=== PATIENT | male | born 1975 | race Caucasian/White ===

== ENCOUNTER 2020-06-20 11:13 | Inpatient (IN) ==
[2020-06-20] MEDS ORDERED: HEPARIN (PORCINE) 1000 UNIT/ML 10 ML (CATH LAB USE ONLY) ONE (11:17)
[2020-06-20] MEDS ORDERED: fentaNYL citrate 100 MCG/2 ML VIAL ONE ×2 (11:17→12:45)
[2020-06-20] MEDS ORDERED: NiCARDipine HCL INJ 2.5 MG/ML 10 ML AMP ONE ×2 (11:17→13:52)
[2020-06-20] MEDS ORDERED: MIDAZOLAM HCL 1 MG/ML 2ML VIAL ONE ×2 (11:18→12:42)
[2020-06-20] MEDS ORDERED: NITROGLYCERIN/D5W 100MCG/ML 20ML SYR ONE ×2 (11:19→13:52)
[2020-06-20] MEDS ORDERED: NITROGLYCERIN SL 0.4 MG/TAB TAB ONE ×2 (11:22→11:47)
[2020-06-20] MEDS ORDERED: LORazepam 1 MG/2 ML VIAL IV STA (11:26)
[2020-06-20] MEDS ORDERED: LORazepam 2 MG/4 ML VIAL ONE (11:26)
[2020-06-20] MEDS ORDERED: OPTIRAY 320 125ml IV ONE (11:32)
--- NOTE | 2020-06-20 11:33 | XRay Report ---
XR chest 1V portable HISTORY: 45 years-old Male Chest pain acute atypical chest pain COMPARISON: None TECHNIQUE: Supine AP view of the chest FINDINGS: Coronary artery stent. Cardiac silhouette is upper limits of normal in size. Hypoinflation. Mild inte rstitial opacities, right greater than left. No pneumothorax, pleural effusion or overt pulmonary [place] ma. No airspace consolidation typical for pneumonia. Bones appear grossly intact. IMPRESSION: 1. Hypoinflation with mild nonspecific mild right lung interstitial coarsening. 2. Coronary arterial stent. 3. No airspace consolidation typical for pneumonia. ACT 112: Negative or not required by law. The above report was generated using voice recognition software. It may contain grammatical, syntax o r spelling errors. Electronically signed by: Deepak Fagan M.D. 06/20/2020 11:31 AM
[2020-06-20 11:38] LABS: Basophils # (auto) 0.01 K/uL (0-0.2); Basophils % (auto) 0.1 %; Eosinophils # (auto) 0.21 K/uL (0-0.5); Eosinophils % (auto) 2.1 %; Hematocrit (blood only) 43.4 % (42-52); Hemoglobin 14.5 g/dL (14.0-18.0); Immature Granulocytes # (auto) 0.07 K/uL (0.00-0.02); Immature Granulocytes % (auto) 0.7 %; Lymphocytes # (auto) 1.48 K/uL (1.2-3.4); Lymphocytes % (auto) 14.5 %; Mean Corpuscular Hemoglobin 29.7 pg (25-34); Mean Corpuscular Hgb Conc 33.4 g/dL (32-36); Mean Corpuscular Volume 88.8 fL (80-100); Mean Platelet Volume 10.9 fL (7.4-10.4); Monocytes # (auto) 0.74 K/uL (0.11-0.59); Monocytes % (auto) 7.2 %; Neutrophils # (auto) 7.72 K/uL (1.4-6.5); Neutrophils % (auto) 75.4 %; Platelet Count 211 K/uL (130-400); RDW Coefficient of Variation 14.1 % (11.5-14.5); Red Blood Count 4.89 M/uL (4.7-6.1); White Blood Count 10.23 K/uL (4.8-10.8)
[2020-06-20 11:47] LABS: Partial Thromboplastin Ratio 0.8; Partial Thromboplastin Time 23.5 Seconds (21.0-31.0); Prothrombin Time 10.6 Seconds (9.0-12.0)
--- NOTE | 2020-06-20 11:48 | CT Scan Report ---
CT head/brain wo con CLINICAL HISTORY: Head trauma. Evaluate for intracranial hemorrhage COMPARISON STUDY: No previous studies for comparison. TECHNIQUE: Axial CT of the brain is performed from the vertex to the skull base. IV contrast was not administered for this examination. A dose lowering technique was utilized adhering to the principles of ALARA. CT DOSE: FINDINGS: No intra or extra-axial mass lesions are visualized. There is no CT evidence of acute cortical infarc tion. There is no evidence of midline shift. There is no acute hemorrhage. No calvarial fractures ar e visualized. There is no evidence of pathologic ventricular dilatation. There is bilateral maxillary sinus mucosal thickening. There is a left maxillary sinus air-fluid leve l. There is trace fluid within the sphenoid sinus. There are multiple opacified ethmoid air cells. IMPRESSION: 1. No acute intracranial findings 2. Paranasal sinus disease ACT 112: Negative or not required by law. Electronically signed by: Carlos Avila M.D. 06/20/2020 11:47 AM
--- NOTE | 2020-06-20 11:48 | CT Scan Report ---
CERVICAL SPINE CT CT DOSE: HISTORY: Fall. found down TECHNIQUE: Multiaxial CT images of the cervical spine were performed and reformatted in the sagittal and coronal plane without the use of contrast. A dose lowering technique was utilized adhering to th e principles of ALARA. COMPARISON: None. FINDINGS: No fractures. No subluxation. Prevertebral soft tissues and the C1-C2 interval are intact. No pneumothorax. Trace fluid level within the left maxillary sinus. IMPRESSION: No fractures within the cervical spine. ACT 112: Negative or not required by law. Electronically signed by: Corey Aguilar M.D. 06/20/2020 11:46 AM
[2020-06-20 11:54] LABS: Albumin Level 3.2 gm/dl (3.4-5.0); BUN Creatinine Ratio 9.6 (10-20); Calcium 8.6 mg/dl (8.5-10.1); Creatinine Clr Calc Pharmacy 121.9 ml/min; Est GFR (African American) 104.9; Est GFR (Non-African American) 90.5; Magnesium 2.1 mg/dl (1.8-2.4); Potassium 4.3 mmol/L (3.5-5.1)
--- NOTE | 2020-06-20 11:54 | CT Scan Report ---
CT ANGIOGRAPHY OF THE CHEST WITHOUT AND WITH IV CONTRAST CLINICAL HISTORY: Atypical chest pain. Possible aortic dissection COMPARISON STUDY: Chest x-ray dated 06/20/2020 TECHNIQUE: Unenhanced images were obtained through the thorax. Following the IV administration of 118 mL of Optiray-320, CT angiography of the thorax was performed from the thoracic inlet to the lung ba ses. Images are reviewed in the axial, sagittal, and coronal planes. MIP images were acquired. IV con trast was administered without complication. A dose lowering technique was utilized adhering to the principles of ALARA. CT DOSE: 4212.43 mGy.cm FINDINGS: Thyroid: Imaged portions of the thyroid gland are normal in appearance. Thoracic aorta: Noncontrast images reveal no evidence of acute thoracic aortic hematoma. Postcontrast images reveal no evidence of thoracic aortic aneurysm. There are no intimal flaps to indicate aortic dissection. Pulmonary vasculature: The pulmonary trunk is normal in caliber. There are no central filling defects identified to suggest pulmonary embolus. Note that this examination was not protocoled for the evalu ation of pulmonary emboli. HEART: There are extensive coronary artery calcifications. There is myocardial thinning of the left v entricular apex. Lungs and pleural spaces: There are no pleural effusions. There are dependent atelectatic changes. Th ere are no areas of bright focal consolidation to indicate pneumonia. Mediastinum: There is no evidence of pathologic mediastinal lymphadenopathy [place]: There is no evidence of pathologic hilar lymphadenopathy Axilla: There is no evidence of pathologic axillary lymphadenopathy Upper abdomen: The gallbladder is surgically absent. Skeletal structures: There is a defect within the anterior sternal cortex which appears chronic. Ther e is no overlying soft tissue edema. IMPRESSION: 1. No evidence of thoracic aortic aneurysm or dissection 2. No evidence of acute pulmonary embolism 3. Extensive coronary artery calcifications with thinning of the left ventricular myocardial apex 4. Small defect within the anterior sternal cortex, likely chronic 5. Increased dependent parenchymal markings likely atelectatic ACT 112: Negative or not required by law. Electronically signed by: Carlos Avila M.D. 06/20/2020 11:53 AM
[2020-06-20 12:09] LABS: Albumin Globulin Ratio 0.9 (0.9-2); Bilirubin,Total 0.5 mg/dl (0.2-1); Creatine Kinase MB 3.1 ng/ml (0.5-3.6); Globulin 3.6 gm/dl (2.5-4.0); Thyroid Stimulating Hormone 6.3 uIu/ml (0.300-4.500); Total Protein 6.8 gm/dl (6.4-8.2); Troponin I 0.096 ng/ml (0-0.045)
[2020-06-20 12:24] LABS: T4 Free Thyroxine 0.77 ng/dl (0.8-1.6)
[2020-06-20] MEDS ORDERED: NOREPINEPHRINE BITARTRATE 1 MG/ML 4 ML VIAL (CATH LAB USE ONLY) ONE (12:30)
--- NOTE | 2020-06-20 12:35 | Emergency Department Note ---
History of Present Illness General Chief Complaint: Cardiac Assessment Time Seen by Provider: 06/20/20 11:16 History of Present Illness Provider complaint: found unresponsive and stopped breathing Timing confirmed by: police Place: other ([facility]) Bystander CPR performed: Yes AED applied by bystander/gsa coordinator: Yes Shock advised: Yes Number of shocks delivered: 1 Initial findings in the field: unresponsive, no respirations and no pulse ROSC in the field: Yes Associated injuries: No Associated symptoms: chest pain Known history of: CAD and [place] Treatments prior to arrival: chest compressions and defibrillated shocks # (1) 45-year-old male inmate presents emergency department status post cardiac arrest. Per EMS, the patient was in a break room area and was found down and unresponsive. Patient was found to be pulseless and not breathing. Chest compressions were started by police officers at the jail and AED was applied. AED if device shocked and 1 defibrillated garza was given the patient had [place] and regained pulse and breathing and started talking. Patient reported diffi culty seeing and intermittent vision loss which he reports has since resolved. He is able to see without difficulties now. Home Medications Home Medications Medication Instructions Recorded Confirmed Type aspirin 325 mg tablet 325 mg PO DAILY #30 tab 04/17/19 04/17/19 Rx carvedilol 12.5 mg tablet 12.5 mg PO BID #60 tab 04/17/19 04/17/19 Rx clopidogrel 75 mg tablet 75 mg PO DAILY #30 tab 04/17/19 04/17/19 Rx isosorbide mononitrate 30 mg 30 mg PO DAILY #30 tab 04/17/19 04/17/19 Rx tablet,extended release 24 hr nitroglycerin 0.4 mg sublingual 0.4 mg SL Q5M PRN #20 tab 04/17/19 04/17/19 Rx tablet pravastatin 40 mg tablet 40 mg PO DAILY #30 tab 04/17/19 04/17/19 Rx sertraline 100 mg tablet 200 mg PO DAILY #30 tab 04/17/19 04/17/19 Rx Allergies Allergy/AdvReac Type Severity Reaction Status Date / Time trazodone Allergy Severe LOW BP Verified 04/27/19 13:08 Past Med/Surg History Medical History CAD (coronary artery disease) Chronic sinusitis Dyslipidemia Hypertension Surgical History History of coronary artery stent placement Hx of tonsillectomy Family History Father Coronary heart disease, Onset Age: 30 Mother Hypertension Social History Smoking Status: Former smoker Age Started Using Tobacco: 17; Age Quit Using Tobacco: 43; packs per day: 1; Hx Alcohol Use: Yes (None since 1999) Communication Ability: Effective Beliefs That Will Affect Care: None marital status: Single Current Living Situation Comment: [facility] [employer] current occupation: NA Feels Safe at Home: Yes Review of Systems A total of 10 systems reviewed and were otherwise negative Physical Exam Vital Signs: Vital Signs - 24 hr 06/20/20 10:58 06/20/20 11:16 Temperature 37.0 C Temperature Source Oral Pulse Rate 79 Pulse Rate [Right Radial] 79 Respiratory Rate 26 H 24 Respiratory Effort / Characteristics Spontaneous Respiratory Depth Normal Respiratory Patter n Tachypnea Blood Pressure 125/78 Blood Pressure [Le ft Arm] 118/76 Blood Pressure [Ri ght Arm] 125/78 Blood Pressure Sofia n 93 Blood Pressure Sofia n [Left Arm] 90 Blood Pressure Sofia n [Right Arm] 93 Blood Pressure Pos ition Lying Blood Pressure Pos ition [Left Arm] Lying Blood Pressure Pos ition [Right Arm] Lying Pulse Oximetry 97 Oxygen Delivery Me thod Nasal Cannula Oxygen Flow Rate 4 Sepsis Recent Feve r Within 48 Hours No Sepsis New/Unexpla ined Change in Men jena Status No Sepsis Action Take n by Nursing No Action Required Physical Exam: Physical Exam GENERAL: He is oriented to person, place, and time. He appears well-developed and well-nourished. He does not appear distressed. HENT: Exam performed. - Head: Normocephalic and atraumatic. - Right Ear: External ear normal. No mastoid tenderness. - Left Ear: External ear normal. No mastoid tenderness. - Mouth/Throat: The oropharynx is clear and moist. No trismus in the jaw. No dental abscesses or uvula swelling. No oropharyngeal exudate or tonsillar abscesses. EYES: Conjunctivae and EOM are normal. Pupils are equal, round, and reactive to light. Right eye exhibits no discharge. Left eye exhibits no discharge. No scleral icterus. NECK: Normal range of motion. Neck supple. No JVD present. No spinous process tenderness present. No carotid bruit present. No rigidity. No tracheal deviation and normal range of motion present. No Brudzinski's sign and no Kernig's sign noted. CV: Normal rate, regular rhythm, normal heart sounds and intact distal pulses. There is no peripheral edema. Palpable radial pulses bue. PULM/CHEST: Effort normal and breath sounds normal. No respiratory distress. No stridor. He has no wheezes. He has no rales. - Chest Wall: He exhibits no tenderness. ABD: The abdomen is soft. Bowel sounds are normal. He has no distension. No mass is present. There is no tenderness. There is no rebound, no guarding, no Karie y's sign and no tenderness at McBurney's point. Rovsig negative. MUSC/SKEL: Normal range of motion. There is no peripheral edema, tenderness or deformity. LYMPH: No cervical adenopathy. NEURO: He is alert and oriented to person, place, and time. He has normal strength. No cranial nerve deficit or sensory deficit. Coordination and gait normal. GCS eye subscore is 4. GCS verbal subscore is 5. GCS motor subscore is 6. Cerebellar tests wnl. SKIN: Skin is warm and dry. He is not diaphoretic. PSYCH: He has a normal mood and affect. Behavior is normal. Judgment and thought content normal. Course Course 1046: Call received from EMS. Patient arriving with 45-year-old male who was in cardiac arrest. 1 shock delivered by AED and CPR was done by bystanders. No epi. Patient has a history of heart disease hyperlipidemia and peripheral artery disease. Twelve-lead EKG was faxed over to me. I reviewed the EKG and there is no ST elevation or ST depression. Given the patient has raw skin and had 1 shock delivered by a ED, heart alert was called for patient go to Regional Office Coordinator. 1058: The patient was evaluated in room B1. A complete history and physical exam was performed. Administered Medications Discontinued Medications Lorazepam (Ativan) 1 mg in 2 mls @ 2 mls/min IV NOW STA Stop: 06/20/20 11:27 Last Admin: 06/20/20 11:32 Dose: 2 mls/min Documented by: [id number] Ioversol (Optiray 320 125ml) 118 ml IV ONCE ONE Stop: 06/20/20 11:33 Last Admin: 06/20/20 11:32 Dose: 118 ml Documented by: [id number] Lorazepam (Lorazepam 2 Mg/4 Ml Vial) Confirm Administered Dose 2 mg .ROUTE .STK- MED ONE Stop: 06/20/20 11:27 Last Admin: 06/20/20 11:33 Dose: Not Given Documented by: [id number] Nitroglycerin (Nitroglycerin Sl 0.4 Mg/Tab Tab) Confirm Administered Dose 0.4 mg .ROUTE .STK-MED ONE Stop: 06/20/20 11:23 Last Admin: 06/20/20 11:24 Dose: 0.4 mg Documented by: [id number] Medical Decision Making Laboratory Data Result diagrams: 06/20/20 11:23 06/20/20 11:23 Lab Results 06/20/20 06/20/20 06/20/20 Range/Units 11:23 11:23 11:23 WBC 10.23 (4.8-10.8) K/uL RBC 4.89 (4.7-6.1) M/uL Hgb 14.5 (14.0-18.0) g/dL Hct 43.4 (42-52) % MCV 88.8 (80-100) fL MCH 29.7 (25-34) pg MCHC 33.4 (32-36) g/dL RDW Std Deviation 46.0 (36.4-46.3) fL RDW Coeff of Ariane 14.1 (11.5-14.5) % Plt Count 211 (130-400) K/uL MPV 10.9 H (7.4-10.4) fL Immature Gran % (Auto) 0.7 % Neut % (Auto) 75.4 % Lymph % (Auto) 14.5 % [place] % (Auto) 7.2 % Eos % (Auto) 2.1 % Baso % (Auto) 0.1 % Neut # (Auto) 7.72 H (1.4-6.5) K/uL Lymph # (Auto) 1.48 (1.2-3.4) K/uL [place] # (Auto) 0.74 H (0.11-0.59) K/uL Eos # (Auto) 0.21 (0-0.5) K/uL Baso # (Auto) 0.01 (0-0.2) K/uL Immature Gran # (Auto) 0.07 H (0.00-0.02) K/uL PT 10.6 (9.0-12.0) Seconds INR 1.0 (0.9-1.1) APTT 23.5 (21.0-31.0) Seconds PTT Ratio 0.8 Sodium 139 (136-145) mmol/L Potassium 4.3 (3.5-5.1) mmol/L Chloride 108 H (98-107) mmol/L Carbon Dioxide 21 (21-32) mmol/L Anion Gap 10.0 (3-11) BUN 10 (7-18) mg/dl Creatinine 1.00 (0.6-1.4) mg/dl Est Cr Clr Drug Dosing 121.9 ml/min Est GFR ( Amer) 104.9 Est GFR (Non-Af Amer) 90.5 BUN/Creatinine Ratio 9.6 L (10-20) Glucose 143 H (70-99) mg/dl Calcium 8.6 (8.5-10.1) mg/dl Magnesium 2.1 (1.8-2.4) mg/dl Total Bilirubin 0.5 (0.2-1) mg/dl AST 177 H (15-37) U/L ALT 236 H (12-78) U/L Alkaline Phosphatase 63 (45-117) U/L Total Creatine Kinase 197 (39-308) U/L CK-MB (CK-2) 3.1 (0.5-3.6) ng/ml CK/CKMB % Calc 1.6 (0-3.0) Troponin I 0.096 H* (0-0.045) ng/ml Total Protein 6.8 (6.4-8.2) gm/dl Albumin 3.2 L (3.4-5.0) gm/dl Globulin 3.6 (2.5-4.0) gm/dl Albumin/Globulin Ratio 0.9 (0.9-2) Lipase 103 (73-393) U/L TSH 6.300 H (0.300-4.500) uIu/ml Free T4 0.77 L (0.8-1.6) ng/dl Imaging Data Radiologist's Impression: CT ANGIOGRAPHY OF THE CHEST WITHOUT AND WITH IV CONTRAST CLINICAL HISTORY: Atypical chest pain. Possible aortic dissection COMPARISON STUDY: Chest x-ray dated 06/20/2020 TECHNIQUE: Unenhanced images were obtained through the thorax. Following the IV administration of 118 mL of Optiray-320, CT angiography of the thorax was performed from the thoracic inlet to the lung bases. Images are reviewed in the axial, sagittal, and coronal planes. MIP images were acquired. IV contrast was administered without complication. A dose lowering technique was utilized adhering to the principles of ALARA. CT DOSE: 4212.43 mGy.cm FINDINGS: Thyroid: Imaged portions of the thyroid gland are normal in appearance. Thoracic aorta: Noncontrast images reveal no evidence of acute thoracic aortic hematoma. Postcontrast images reveal no evidence of thoracic aortic aneurysm. There are no intimal flaps to indicate aortic dissection. Pulmonary vasculature: The pulmonary trunk is normal in caliber. There are no central filling defects identified to suggest pulmonary embolus. Note that this examination was not protocoled for the evaluation of pulmonary emboli. HEART: There are extensive coronary artery calcifications. There is myocardial thinning of the left ventricular apex. Lungs and pleural spaces: There are no pleural effusions. There are dependent atelectatic changes. There are no areas of bright focal consolidation to indicate pneumonia. Mediastinum: There is no evidence of pathologic mediastinal lymphadenopathy [place]: There is no evidence of pathologic hilar lymphadenopathy Axilla: There is no evidence of pathologic axillary lymphadenopathy Upper abdomen: The gallbladder is surgically absent. Skeletal structures: There is a defect within the anterior sternal cortex which appears chronic. There is no overlying soft tissue edema. IMPRESSION: 1. No evidence of thoracic aortic aneurysm or dissection 2. No evidence of acute pulmonary embolism 3. Extensive coronary artery calcifications with thinning of the left ventricular myocardial apex 4. Small defect within the anterior sternal cortex, likely chronic 5. Increased dependent parenchymal markings likely atelectatic ACT 112: Negative or not required by law. Electronically signed by: Carlos Avila M.D. 06/20/2020 11:53 AM Dictated: 06/20/20 1147 Transcribed: 06/20/[address] DOSE: HISTORY: Fall. found down TECHNIQUE: Multiaxial CT images of the cervical spine were performed and reformatted in the sagittal and coronal plane without the use of contrast. A dose lowering technique was utilized adhering to the principles of ALARA. COMPARISON: None. FINDINGS: No fractures. No subluxation. Prevertebral soft tissues and the C1-C2 interval are intact. No pneumothorax. Trace fluid level within the left maxillary sinus. IMPRESSION: No fractures within the cervical spine. ACT 112: Negative or not required by law. Electronically signed by: Corey Aguilar M.D. 06/20/2020 11:46 AM Dictated: 06/20/20 1143 Transcribed: 06/20/[address] head/brain wo con CLINICAL HISTORY: Head trauma. Evaluate for intracranial hemorrhage COMPARISON STUDY: No previous studies for comparison. TECHNIQUE: Axial CT of the brain is performed from the vertex to the skull base. IV contrast was not administered for this examination. A dose lowering technique was utilized adhering to the principles of ALARA. CT DOSE: FINDINGS: No intra or extra-axial mass lesions are visualized. There is no CT evidence of acute cortical infarction. There is no evidence of midline shift. There is no acute hemorrhage. No calvarial fractures are visualized. There is no evidence of pathologic ventricular dilatation. There is bilateral maxillary sinus mucosal thickening. There is a left maxillary sinus air-fluid level. There is trace fluid within the sphenoid sinus. There are multiple opacified ethmoid air cells. IMPRESSION: 1. No acute intracranial findings 2. Paranasal sinus disease ACT 112: Negative or not required by law. Electronically signed by: Carlos Avila M.D. 06/20/2020 11:47 AM Dictated: 06/20/20 1143 Transcribed: 06/20/20 114 ECG Data Indication: chest pain Rate (beats per minute): 78 Rhythm: normal sinus Findings: + ST depression (Mild ST depression V5 V6); no ST elevation Additional Comments: SC QRS and QTc intervals are within normal limits MDM Narrative The patient was evaluated in room B1. A complete history and physical exam was performed. Patient was placed on cardiac catheterization technologist and large-bore IV access was obtained. Cardiac pads were placed on the patient. EKG was performed which showed no STEMI, extremely mild ST depressions in leads V5 and V6. Dr. Cornejo at bedside. He agrees there is no STEMI on EKG. Patient was found down at the residential. Dr. Cornejo and I discussed and we decided that the patient would be taken for CT scan to rule out any intracerebral hemorrhage before the patient going to Regional Office Coordinator. Blood pressure was equal in both arms. Patient was still reporting chest pain. Patient was given 1 sublingual nitro in the emergency department and Ativan 1 mg IVP. I accompanied the patient to CAT scan. I reviewed the CT scans myself did not see any sort of intracerebral hemorrhage or C-spine fracture. Patient continued to report chest pain while in CAT scan and since he was at the CAT scan we decided to do CTA of his chest to rule out dissection. CTA of the chest was quickly viewed by me and revealed no dissection. Patient was taken back to the resuscitation bay and he was given aspirin 324 mg p.o. Patient was still reporting chest pains while sublingual nitroglycerin was given. Repeat EKG at 1119 showed sinus rhythm with rate of 78. SC QRS and QTc intervals are within normal limits. No ST elevation. Mild ST depression in leads V5 and V6. No significant change from previous EKG. I discussed with Dr. Cornejo that I did not see any evidence of ICH or dissection on the CAT scan, official reads are pending. He stated he would take the patient to Regional Office Coordinator given his ROSC after cardiac arrest resolved status post 1 defibrillation by AED. Impression & Plan Cardiac arrest Critical Care Time Critical Care Time: Yes Total Critical Care Time: 38 I have personally spent greater than 38 minutes of critical care time in the direct management of this patient. This includes bedside care, interpretation of diagnostic studies, and testing, discussion with consultants, patient, and family members, and other required patient management activities. This 38 minutes is in excess of all separately billable procedures. Discharge Plan Visit Data Chief Complaint: Cardiac Assessment ED Provider: Adrián De León Discharge Problem: Cardiac arrest Patient Disposition: Still a Patient Discharge Instructions Interventions: ED Discharge Assessment Last Done: 06/20/20 11:56
[2020-06-20] MEDS ORDERED: ONDANSETRON INJ 2 MG/ML 2 ML VIAL IV PRN (13:39)
[2020-06-20] MEDS ORDERED: NITROGLYCERIN SL 0.4 MG/TAB TAB SL PRN (13:44)
[2020-06-20] MEDS ORDERED: ICU PROTOCOL FOR HYPERGLYCEMIA PRN (13:49)
[2020-06-20] MEDS ORDERED: TICAGRELOR 90 MG TAB PO ONE ×2 (13:49→13:50)
--- NOTE | 2020-06-20 13:55 | Critical Care Consultation ---
Date of Consultation June 20, 2020 Assessment & Plan (1) Cardiac arrest: 45-year-old male with a past medical history of ischemic cardiomyopathy, coronary artery disease, obesity and hypertension presenting to the hospital status post cardiac arrest. Patient underwent PCI to the ostial ramus with a single drug-eluting stent and PCI of ostial to proximal LAD with single drug-eluting stent. Patient loaded with Brilinta. He is chronically on aspirin. Continue dual antiplatelet therapy indefinitely. Trend troponins until peak. Echo is being obtained. Continue beta-kwasi and JOVITA. Cardiology would consider AICD placement later this hospitalization. Continue statin. Lidocaine patch for chest pain as needed. Altered mental status is resolved. Remain in the ICU today with likely downgrade tomorrow. (2) Percutaneous transluminal coronary angioplasty status: (3) Altered mental status: (4) Coronary artery disease: History of Present Illness Reason for Consultation: Post cardiac arrest Requesting Physician: Dr. Derick Cornejo Attending Physician: Derick Cornejo MD History of Present Illness Today when she did not demonstrate any evidence of thoracic aortic dissection or aneurysm. No evidence of pulmonary embolism. Extensive coronary artery calcifications with thinning of the left ventricular myocardial apex noted. Small defect within the anterior sternal cortex likely chronic. Increased dependent parenchymal markings likely atelectatic.This is a 45-year-old male with a past medical history of coronary artery disease and ischemic cardiomyopathy who was previously seen by Dr. Disla in April 2019 presenting to the ER status post cardiac arrest. Patient was found down in the break room and unresponsive. Chest compressions were started by security guards and an AED was placed. Patient received 1 shock by the ED device. Patient regained return of spontaneous circulation. Patient was apparently breathing and talking. He was evaluated by cardiology in the emergency department and taken back to the Cath L ab. Patient is complaining of chest pain that is reproducible with palpation. He does not remember the events surrounding his cardiac arrest. Denies any fevers or chills. He notes his last heart attack was many years ago, but he had similar pain. He notes that he has had a cough for the last 2 to 3 months. Vital signs are stable currently. Patient underwent a CT of his chest demonstrated no evidence of PE or dissection. Extensive coronary artery calcifications with thinning of the left ventricular myocardial apex. Small defect within the anterior sternal cortex likely chronic. Increased atelectasis in the bases. CT C-spine was negative for fractures. CT head with paranasal sinus disease. No acute abnormalities. Patient underwent a cardiac cath which demonstrated 100% proximal chronic total occlusion of the RCA. 99% ramus ostial stenosis. 70 to 80% proximal in-stent restenosis of the LAD with mild to moderate mid in-stent restenosis. 100% distal LAD chronic total occlusion. In summary, severe multivessel coronary artery disease. 70 to 80% proximal LAD in- stent restenosis. Successful PCI of ostial ramus with single drug-eluting stent. Successful PCI of ostial to proximal LAD with single drug-eluting stent. Recommendation for possible ICD implantation later on during hospitalization. Allergies Allergy/AdvReac Type Severity Reaction Status Date / Time trazodone Allergy Severe LOW BP Verified 04/27/19 13:08 Home Medications Home Medications Medication Instructions Recorded Confirmed Type aspirin 325 mg tablet 325 mg PO DAILY #30 tab 04/17/19 04/17/19 Rx carvedilol 12.5 mg tablet 12.5 mg PO BID #60 tab 04/17/19 04/17/19 Rx clopidogrel 75 mg tablet 75 mg PO DAILY #30 tab 04/17/19 04/17/19 Rx isosorbide mononitrate 30 mg 30 mg PO DAILY #30 tab 04/17/19 04/17/19 Rx tablet,extended release 24 hr nitroglycerin 0.4 mg sublingual 0.4 mg SL Q5M PRN #20 tab 04/17/19 04/17/19 Rx tablet pravastatin 40 mg tablet 40 mg PO DAILY #30 tab 04/17/19 04/17/19 Rx sertraline 100 mg tablet 200 mg PO DAILY #30 tab 04/17/19 04/17/19 Rx Patient History Medical History Altered mental status CAD (coronary artery disease) Chronic sinusitis Coronary artery disease Dyslipidemia Hypertension Surgical History History of coronary artery stent placement Hx of tonsillectomy Percutaneous transluminal coronary angioplasty status Family History Father Coronary heart disease, Onset Age: 30 Mother Hypertension Social History Smoking Status: Former smoker Age Started Using Tobacco: 17; Age Quit Using Tobacco: 43; packs per day: 1; Hx Alcohol Use: Yes (None since 1999) Communication Ability: Effective Beliefs That Will Affect Care: None marital status: Unknown Current Living Situation Comment: [facility] current occupation: NA Feels Safe at Home: Yes Review of Systems Review of Systems: All systems reviewed & are unremarkable except as noted in HPI & below Physical Exam Constitutional: WD/WN, vitals as above Eyes: PERRL, conjunctivae normal, anicteric sclerae ENMT: external ear and nose normal, oropharynx normal Respiratory: normal respiratory effort, lungs clear to auscultation Cardiovascular: RRR, no murmur, no edema Gastrointestinal (Abdomen): normal bowel sounds, soft, nontender, no hepatosplenomegaly Musculoskeletal: no cyanosis or clubbing, extremities motor strength 5/5 Skin: no rashes, warm and dry Neurologic: PERRL, EOMI, accommodation nl, no face palsy, no dysarthria Psychiatric: A+Ox3, euthymic affect Results & Data Results & Data ([facility]) Vital Signs (Past 12 Hours) Vital Signs Temp Pulse Pulse Resp BP BP BP 06/20/20 11:16 79 24 118/76 125/78 06/20/20 10:58 98.6 F 79 26 H 125/78 Pulse Ox 06/20/20 11:16 06/20/20 10:58 97 Reviewed vital signs, labs and imaging Coding Level of Care Code 68457 Inpt Consult Level 5 Diagnoses Cardiac arrest I46.9 Percutaneous transluminal coronary angioplasty status Z98.61 Altered mental status R41.82 Coronary artery disease I25.10
--- NOTE | 2020-06-20 13:57 | Pre Anesthesia Assessment ---
Date of Service June 20, 2020 Pre Sedation Assessment Vital Signs Temp Pulse Pulse Resp BP BP BP 06/20/20 11:16 79 24 118/76 125/78 06/20/20 10:58 98.6 F 79 26 H 125/78 Pulse Ox 06/20/20 11:16 06/20/20 10:58 97 Cardiovascular + regular rate no murmur Respiratory + labored breathing Pre-Sedation Airway Assessment Smoking Status: Former smoker Hx Sleep Apnea: No Hx Difficult Intubation: No Short, Thick Neck: No Thyromental Distance: < 3.5 Finger Breadths Oral Cavity: + Dental Abnormalities Mallampati Class: III ASA: ASA4 Procedure Planning Contraindications for Sedation: none Current Medications Reviewed: Yes Notes The planned sedation has been discussed with the patient. Informed Consent was obtained. I have identified the patient, determined the appropriateness of sedation and have assessed the patient immediately prior to the procedure. All medicine(s) and interventions are by my order.
--- NOTE | 2020-06-20 13:58 | Post Anesthesia Assessment ---
Date of Service June 20, 2020 Post Sedation Assessment Vital Signs Temp Pulse Pulse Resp BP BP BP 06/20/20 11:16 79 24 118/76 125/78 06/20/20 10:58 98.6 F 79 26 H 125/78 Pulse Ox 06/20/20 11:16 06/20/20 10:58 97 Recovery Score Activity: Moves 4 extremities Respiration: Deep Breath/Cough Circulation: +/-20% PreAnes Value Consciousness: Arouseable (by name) Oxygen Saturation: O2 needed for >90% Discharge Sedation Level of Care: Fast Track Phase II Post Sedation Plan On clinical assessment, the patient appears to have tolerated the sedation without complications. Patient is recovering as anticipated. Patient will continue to be monitored by nursing and may be discharged when sedation discharge criteria are met per below protocol. Upon Completions of procedure up to 15 minutes continue every 5 minute vital signs and the P.A.R. score; then discharge to a Phase I or Fast Track to Phase II per the following guidelines: * Discharge Patient to appropriate Phase II area if PAR is 8 or greater or return to pre- procedure baseline. The post - procedure orders will be as directed. * If PAR score is less than 8 or not return to pre-procedure baseline then patient will follow Phase I monitoring till PAR is reached for Phase II. The Phase I may be done in procedure room or may call to secure a Phase I area. * If naloxone or flumazenil are used for reversal, hold in Phase I for continued monitoring from when last reversal dose was given for a minimum of 60 minutes or longer pending the nurse and/or physician discretion of patient condition before discharge to Phase II. Please call the Sedation Physician to re-evaluate and complete post-note for discharge to Phase II area. Do NOT discharge from procedure sedation or Phase 1 until post- sedation eval uation note is complete by procedure /sedation MD Sedation Discharge Instructions to be given to the patient at discharge to home.
--- NOTE | 2020-06-20 14:30 | Cardiac Catheterization ---
ACC Data: Allopathic Doctor Cardiac Status Clinical evaluation leading to the procedure CAD Presenation: Non STEMI Anginal Classification: CCS IV Heart Failure: No Cardiogenic Shock within 24 Hours: No Cardiac Arrest within 24 Hours: Yes Imaging Studies Past 6 Months: No Stress Studies Past 6 Months: No Diagnostic Physicians Name: Derick Cornejo MD Status: Emergency Closure Device Percutaneous Entry Location: Radial Closure Device: Radial Band Recommendations: PCI without planned CABG PCI Indication: PCI for high risk Non-BRANDON Lesion Segment Name: ostal ramus Culprit Artery: Yes Stenosis Prior to Rx (%): 99 Chronic Total Occlusion: No IVUS: Yes FFR: No Pre-Procedure SHERI Flow: 3 Previously Treated Lesion: No Lesion Complexity: High/C Lesion Length (mm): 12 Thrombus Present: Yes Bifurcation Lesion: Yes Guidewire Across Lesion: Stenosis Post-Procedure (%): 0 Post-Procedure SHERI Flow: 3 Devices(s) Deployed: Yes Yes Lesion #2 Segment Name: ostial LAD Culprit Artery: No Stenosis Prior to Rx (%): 80 Chronic Total Occlusion: No IVUS: Yes FFR: No Pre-Procedure SHERI Flow: 3 Previously Treated Lesion: Yes Timeframe: greater than 2 years Treated with Stent: Yes In-Stent Restenosis: Yes In-Stent Thrombosis: No Stent Type: ALEX Lesion Complexity: High/C Lesion Length (mm): 15 Thrombus Present: No Bifurcation Lesion: Yes Guidewire Across Lesion: Yes Stenosis Post-Procedure (%): 0 Post-Procedure SHERI Flow: 3 Devices(s) Deployed: Yes Intraprocedure Events Significant Disection: No Perforation: No Cardiac Cath Procedure Full Procedure Date June 20, 2020 Pre-Procedure Diagnosis Pre-Procedure Diagnosis: Non STEMI and Cardiothoracic Symptom (Cardiac arrest) AUC Score AUC Score: 8 Post-Procedure Diagnosis Post-Procedure Diagnosis: Severe CAD, Successful PCI and Normal Intracardiac Pressures Procedure(s) Performed Procedure(s) Performed: Coronary Angiography, Left Heart Cath, Drug Eluting Stent and IVUS Shelf Stocker Derick Cornejo MD Client Services Assistant(s) Yvon Estimated Blood Loss Estimated Blood Loss: 20 Medication(s) Medication(s): Fentanyl, Heparin, Lidocaine 1%, Nicardipine, Nitroglycerin and Versed Medication(s): Ticagrelor Summary of Findings Indication: Cardiac arrest Access: 6 Fr slender right radial artery Catheters: [place], EBU 3.5 guide Findings: LM -large caliber, 20 to 30% distal at bifurcation LAD -medium caliber, stented from ostium to distal segment. 70 to 80% proximal in-stent restenosis, mild to moderate mid in-stent restenosis. 100% distal LAD chronic total occlusion just after distal aspect of prior stents. Apical vessels fill partially via left to left collaterals. Medium caliber jailed second diagonal with 50% ostial stenosis. Ramus99% hazy, ostial stenosis prior to patent proximal stent. Circumflex -40% ostial, 30% mid segment, medium caliber OM 2 100% chronically occluded. Fills partially retrograde via left to left collaterals. Distal vessel extends and gives collaterals to RCA RCA -100% proximal chronic total occlusion. Right PLB's fill via collaterals from the left LVEDP -12 -- PCI -- Antithrombotic therapy: Heparin, ticagrelor Procedure: Patient with ongoing chest pain and thought to have poor targets for CABG. Decision to proceed with PCI. Left main cannulated with EBU 3.5 guide Lead [employer] Developer 50 wire passed across lesion into distal ramus Pro-water wire placed into circumflex Ostial ramus lesion predilated with 2.0 compliant balloon Dilated lesion stented with 2.25 x 12 mm Xience Tawnya IC vasodilators administered for spasm Noted to have some residual ostial ramus stenosis as well as severe ostial LAD disease BMW wire placed into distal LAD IVUS used to assess extent of disease in LAD, left main. Unable to pass [place] IVUS catheter into mid LAD due to stenosis. Noted to have severe in-stent restenosis at the ostium. Mild circumferential disease in left main. LAD in-stent restenosis dilated with 2.5 balloon Ostial LAD stented with 3.0 x 15 mm Xience [place] LAD stent postdilated with 3.5 NC balloon Ostial ramus stent postdilated with 2.5 NC balloon Post procedure SHERI 3 flow, mild residual ostial LAD stent underexpansion. Mild residual disease at ostium of ramus. No apparent cardiac complications. Continue to have chest pain but reproducible to palpation and with movement and thought chest wall in nature following CPR. Arterial Closure: TR band Summary: 1. Severe multi vessel coronary artery disease -70 to 80% proximal LAD in-stent restenosis. 100% distal LAD chronic total occlusion. Apical vessels fill partially via left to left collaterals 99% possibly acute ostial ramus stenosis just prior to patent stent Medium caliber OM 2 100% chronic total occlusion fills via collaterals 100% proximal RCA chronic total occlusion. PLB's fill via left to left collaterals 2. Normal intracardiac filling pressure 3. Successful PCI of ostial ramus with single drug-eluting stent (2.25 x 12 mm Xience; postdilated with 2.5 NC). 4. Successful PCI of ostial to proximal LAD with single drug-eluting stent (3.0 x 15 mm Xence; postdilated with 3.5 NC). Recommendations: To ICU for continued monitoring Loaded with ticagrelor 180 mg in Allopathic Doctor Continue dual-antiplatelet therapy indefinitely Trend troponins until peak Echocardiogram today Titrate beta-kwasi, ARB as able. Continue statin. We will consider ICD implantation later in hospitalization. Hemodynamics Rest Ao:: 96/69/75 Final Ao: 107/75/86 LV: 80/12 Recommendations Recommendations: PCI without planned CABG Specimens Specimens: None Radiation Exposure (mGy) 5503 Contrast (mls) 140 Fluids (cc crystalloids) Fluids (cc crystalloids): 145 Drains Drains: None Anesthesia Moderate Procedural Complication(s) None Disposition ICU I attest to the content of the Intraoperative Record and any orders documented therein. Any exceptions are noted below. [facility] Card Cath Procedure Codes Cardiac Catheterization Procedure 1: Cardiovascular Cath Procedures: 40634 Coronaries and LHC (+/-LV) Therapeutic Services & Ancillary Proc Procedure 1: Cardiovascular Tx and Anc Procedures: 16070 IV Ultrasound (Coronary or Graft) Procedure 2: Cardiovascular Tx and Anc Procedures: 59812 IV Ultrasound Ea addl vessel Moderate Sedation Procedure 1: Sedation/Anesthesia: 12093 Mod Sedation by the same physician;Init15 Min Child Age 5 & Up Procedure 2: Sedation/Anesthesia: 85843 Mod Sedation by the same physician; Ea [id number] Minutes Stenting Procedure 1: Cardiovascular Stent Procedures: 68684 Perc transcatheter placement of intracoronary stent(s), with ang Procedure 2: Cardiovascular Stent Procedures: 42506 Ea addl branch of a major coronary artery PG Care Time/CCT Total # of Minutes Spent Total Time Spent with Patient: Total time spent is greater than 50% in c oordination of care (as documented) at patient's floor/unit and/or counseling patient:
[2020-06-20] MEDS ORDERED: SODIUM CHLORIDE 0.9% 1000ML 1,000 ML IV SCH (15:00)
--- NOTE | 2020-06-20 15:17 | History & Physical Report ---
Date of Service June 20, 2020 Assessment & Plan (1) Cardiac arrest: With cardiac arrest at the present with CPR started and 1 shock administered by AED With chest pain ongoing after resuscitation more so likely secondary to musculoskeletal pain from CPR, however cardiac arrest thought to be due to the 99% stenosis found on urgent cardiac catheterization in the ramus prior to the patent proximal stent. Cardiac arrest alternatively could be from ventricular arrhythmia secondary to myocardial infarction scar. With some postarrest confusion possibly secondary to anoxia-now resolved CT angiogram of the chest negative for PE or dissection. CT of the head negative for acute disease. Now status post urgent PCI with stents to the ostial ramus and proximal LAD Echocardiogram post catheterization with preserved LV function Vital signs are stable at the time of admission after cardiac catheterization -Admit to ICU for close monitoring -Loaded with Brilinta in the [place] will continue dual antiplatelet therapy with aspirin and Brilinta-holding home Plavix -Cardiology started him on metoprolol tartrate 25 mg p.o. 3 times daily for now (is on carvedilol as an outpatient), atorvastatin 80 mg once daily (home med rec listed as being on pravastatin 40 mg daily as an outpatient, although patient reports he was switched to Lipitor last year), and starting losartan 25 mg once daily -Trend troponin until peaks May need an ICD prior to discharge-to be determined by cardiology Check hemoglobin A1c and lipid panel in the morning -Not a candidate for cooling at this time as per my discussion with cardiology Follow CBC, CMP, magnesium, phosphorus Appreciate cardiology and log skidder management -Checking COVID-19 test given that he has a cough and cardiac arrest-negative (2) Coronary artery disease: As noted above, known to be severe, not a candidate for CABG at this time given multiple stents in the LAD-not good options for sewing a graft in place as per cardiology -Continue management with medications as above Holding home isosorbide (3) Altered mental status: Secondary to post arrest, possibly anoxic brain injury-now much improved Follow along and consider imaging of the brain if worsens (4) Hypertension: Blood pressures are controlled -Continue metoprolol, added losartan as above Holding home isosorbide (5) Dyslipidemia: Switch pravastatin to atorvastatin although patient reports he was switched to atorvastatin last year-home med rec likely not updated Check lipid panel in the morning (6) Chronic sinusitis: Noted previously and on CT of the head No acute issues COVID-19 is negative (7) DVT prophylaxis: SCDs, Brilinta, aspirin Disposition-admit to ICU Eventually back to [facility] Admission and Anticipated Discharge Date Admission Date: June 20, 2020 History of Present Illness Chief Complaint: Unresponsive, cardiac arrest Primary Care Provider: ANGELICA Rose This patient is a 45-year-old male with an extensive cardiac history of CAD with MIs beginning at age 34 and a history of stents to the LAD and circumflex with a known occluded RCA and apical LAD. He presented after being found unresponsive and apneic and pulseless at the [facility] break room. He was adm inistered CPR and the AED advised 1 shock after which ROSC was achieved. When he came to the ER, he was awake and alert but agitated and screaming saying that he had severe chest pain. His initial troponin was 0.09. His initial ECG showed normal sinus rhythm with mild ST depression in the lateral leads with T wave inversions, but no STEMI. Because of his severe ongoing chest pain, he was sent for a CT angiogram of the chest as well as a CT of the head and cervical spine due to being found down. The CT angiogram of the chest was negative for dissection or PE or pneumonia, but did show a possible sternal fracture and some atelectasis as well as a coronary artery stent. The CT of the head showed some paranasal sinus disease and CT of the cervical spine was negative for fracture. He was taken urgently to the cardiac [place] where he was found to have 99% stenosis before his stent in the ramus and a 70 to 80% restenosis of the proximal LAD stent. He was again shown to have a chronic 100% distal LAD total occlusion with apical vessels filling partially via the left to left collaterals, as well as a 100% chronic total occlusion of the OM 2 and 100% proximal RCA chronic total occlusion with PLB's fill via left to left collaterals. He had successful PCI of the ostial ramus with a single drug- eluting stent in the ostial to proximal LAD with single drug-eluting stent. He was loaded with Brilinta and sent to the ICU. He continued to have chest pain after the cardiac catheterization which is musculoskeletal in nature likely due to sternal fracture from the CPR administered. He was noted by the pitch filler to have some post arrest confusion and agitation prior to his cardiac catheterization. I discussed the case with the logistical engineer and the log skidder. Allergies Allergy/AdvReac Type Severity Reaction Status Date / Time trazodone Allergy Severe LOW BP Verified 04/27/19 13:08 Home Medications Home Medications Medication Instructions Recorded Confirmed Type aspirin 325 mg tablet 325 mg PO DAILY #30 tab 04/17/19 04/17/19 Rx carvedilol 12.5 mg tablet 12.5 mg PO BID #60 tab 04/17/19 04/17/19 Rx clopidogrel 75 mg tablet 75 mg PO DAILY #30 tab 04/17/19 04/17/19 Rx isosorbide mononitrate 30 mg 30 mg PO DAILY #30 tab 04/17/19 04/17/19 Rx tablet,extended release 24 hr nitroglycerin 0.4 mg sublingual 0.4 mg SL Q5M PRN #20 tab 04/17/19 04/17/19 Rx tablet pravastatin 40 mg tablet 40 mg PO DAILY #30 tab 04/17/19 04/17/19 Rx sertraline 100 mg tablet 200 mg PO DAILY #30 tab 04/17/19 04/17/19 Rx Past Med/Surg History Medical History (Updated 06/20/20 @ 20:40 by Cielo Boss MD) Altered mental status CAD (coronary artery disease) Chronic sinusitis Coronary artery disease Dyslipidemia Hypertension Obesity Surgical History History of cholecystectomy History of coronary artery stent placement Hx of tonsillectomy Percutaneous transluminal coronary angioplasty status Family History Father Coronary heart disease, Onset Age: 30 Mother Hypertension Social History Smoking Status: Former smoker Age Started Using Tobacco: 17; Age Quit Using Tobacco: 43; packs per day: 1; Second Hand Exposure: No; Do You Dip or Chew Tobacco: No; Tobacco Cessation Education Requested by Patient: No Hx Alcohol Use: No Hx Substance Use: No Preferred Language: Latvian Communication Ability: Effective Functional Consultant Required: No Beliefs That Will Affect Care: None marital status: Unknown Current Living Situation: Other Current Living Situation Comment: [facility] current occupation: NA Other Information That Helps Us Care for You: No Feels Safe at Home: Yes Safety Concerns: Feels Safe At This Time Assistive Devices: None Review of Systems Review of Systems: All systems reviewed & are unremarkable except as noted in HPI & below No recent fevers or chills, no headache, no nausea or vomiting, no abdominal pain. No diarrhea or constipation. No urinary symptoms. No joint pains. No rashes. Has had a chronic cough for couple of months. Physical Exam Constitutional: WD/WN, vitals as above + morbidly obese; no acute distress and not ill appearing Eyes: PERRL, conjunctivae normal, anicteric sclerae ENMT: external ear and nose normal, oropharynx normal Neck: trachea midline, no thyromegaly Respiratory: normal respiratory effort, lungs clear to auscultation Cardiovascular: Rate/Rhythm: regular rate and regular rhythm Heart Sounds: no murmur Extremities: + edema (Trace pitting edema in the ankles bilat erally) Chest (Breasts): Chest: normal inspection of chest (With positive tenderness palpation over sternum) Gastrointestinal (Abdomen): normal bowel sounds, soft, nontender, no hepatosplenomegaly Musculoskeletal: Extremities: extremities normal to inspection; no cyanosis and no clubbing Skin: no rashes, warm and dry Neurologic: moves all extremities and awake; no focal motor deficits Psychiatric: A+Ox3, euthymic affect Lymphatic: no lymphedema Results & Data Results & Data ([facility]) Vital Signs (Past 12 Hours) Vital Signs Temp Pulse Pulse Resp BP BP BP 06/20/20 14:00 72 16 132/92 06/20/20 13:45 81 16 132/92 06/20/20 11:16 79 24 118/76 125/78 06/20/20 10:58 37.0 C 79 26 H 125/78 Pulse Ox 06/20/20 14:00 95 06/20/20 13:45 95 06/20/20 11:16 06/20/20 10:58 97 Laboratory Results 06/20/20 06/20/20 06/20/20 Range/Units 15:20 15:00 15:00 WBC (4.8-10.8) K/uL RBC (4.7-6.1) M/uL Hgb (14.0-18.0) g/dL Hct (42-52) % MCV (80-100) fL MCH (25-34) pg MCHC (32-36) g/dL RDW Std Deviation (36.4-46.3) fL RDW Coeff of Ariane (11.5-14.5) % Plt Count (130-400) K/uL MPV (7.4-10.4) fL Immature Gran % (Auto) % Neut % (Auto) % Lymph % (Auto) % Wolfe % (Auto) % Eos % (Auto) % Baso % (Auto) % Neut # (Auto) (1.4-6.5) K/uL Lymph # (Auto) (1.2-3.4) K/uL Wolfe # (Auto) (0.11-0.59) K/uL Eos # (Auto) (0-0.5) K/uL Baso # (Auto) (0-0.2) K/uL Immature Gran # (Auto) (0.00-0.02) K/uL PT (9.0-12.0) Seconds INR (0.9-1.1) APTT (21.0-31.0) Seconds PTT Ratio Sodium (136-145) mmol/L Potassium (3.5-5.1) mmol/L Chloride (98-107) mmol/L Carbon Dioxide (21-32) mmol/L Anion Gap (3-11) BUN (7-18) mg/dl Creatinine (0.6-1.4) mg/dl Est Cr Clr Drug Dosing ml/min Est GFR ( Amer) Est GFR (Non-Af Amer) BUN/Creatinine Ratio (10-20) Glucose (70-99) mg/dl Calcium (8.5-10.1) mg/dl Magnesium (1.8-2.4) mg/dl Total Bilirubin (0.2-1) mg/dl AST (15-37) U/L ALT (12-78) U/L Alkaline Phosphatase (45-117) U/L Total Creatine Kinase (39-308) U/L CK-MB (CK-2) (0.5-3.6) ng/ml CK/CKMB % Calc (0-3.0) Troponin I (0-0.045) ng/ml Total Protein (6.4-8.2) gm/dl Albumin (3.4-5.0) gm/dl Globulin (2.5-4.0) gm/dl Albumin/Globulin Ratio (0.9-2) Lipase (73-393) U/L TSH (0.300-4.500) uIu/ml Free T4 (0.8-1.6) ng/dl Nasal Screen MRSA (PCR) Pending COVID-19 Eval Order Covid19 Done at [facility] COVID-19 PCR Pending 06/20/20 06/20/20 06/20/20 Range/Units 11:23 11:23 11:23 WBC 10.23 (4.8-10.8) K/uL RBC 4.89 (4.7-6.1) M/uL Hgb 14.5 (14.0-18.0) g/dL Hct 43.4 (42-52) % MCV 88.8 (80-100) fL MCH 29.7 (25-34) pg MCHC 33.4 (32-36) g/dL RDW Std Deviation 46.0 (36.4-46.3) fL RDW Coeff of Ariane 14.1 (11.5-14.5) % Plt Count 211 (130-400) K/uL MPV 10.9 H (7.4-10.4) fL Immature Gran % (Auto) 0.7 % Neut % (Auto) 75.4 % Lymph % (Auto) 14.5 % Wolfe % (Auto) 7.2 % Eos % (Auto) 2.1 % Baso % (Auto) 0.1 % Neut # (Auto) 7.72 H (1.4-6.5) K/uL Lymph # (Auto) 1.48 (1.2-3.4) K/uL Wolfe # (Auto) 0.74 H (0.11-0.59) K/uL Eos # (Auto) 0.21 (0-0.5) K/uL Baso # (Auto) 0.01 (0-0.2) K/uL Immature Gran # (Auto) 0.07 H (0.00-0.02) K/uL PT 10.6 (9.0-12.0) Seconds INR 1.0 (0.9-1.1) APTT 23.5 (21.0-31.0) Seconds PTT Ratio 0.8 Sodium 139 (136-145) mmol/L Potassium 4.3 (3.5-5.1) mmol/L Chloride 108 H (98-107) mmol/L Carbon Dioxide 21 (21-32) mmol/L Anion Gap 10.0 (3-11) BUN 10 (7-18) mg/dl Creatinine 1.00 (0.6-1.4) mg/dl Est Cr Clr Drug Dosing 121.9 ml/min Est GFR ( Amer) 104.9 Est GFR (Non-Af Amer) 90.5 BUN/Creatinine Ratio 9.6 L (10-20) Glucose 143 H (70-99) mg/dl Calcium 8.6 (8.5-10.1) mg/dl Magnesium 2.1 (1.8-2.4) mg/dl Total Bilirubin 0.5 (0.2-1) mg/dl AST 177 H (15-37) U/L ALT 236 H (12-78) U/L Alkaline Phosphatase 63 (45-117) U/L Total Creatine Kinase 197 (39-308) U/L CK-MB (CK-2) 3.1 (0.5-3.6) ng/ml CK/CKMB % Calc 1.6 (0-3.0) Troponin I 0.096 H* (0-0.045) ng/ml Total Protein 6.8 (6.4-8.2) gm/dl Albumin 3.2 L (3.4-5.0) gm/dl Globulin 3.6 (2.5-4.0) gm/dl Albumin/Globulin Ratio 0.9 (0.9-2) Lipase 103 (73-393) U/L TSH 6.300 H (0.300-4.500) uIu/ml Free T4 0.77 L (0.8-1.6) ng/dl Nasal Screen MRSA (PCR) COVID-19 Eval Order COVID-[address] of the head-paranasal sinus disease, no acute disease CT angiogram chest- IMPRESSION: 1. No evidence of thoracic aortic aneurysm or dissection 2. No evidence of acute pulmonary embolism 3. Extensive coronary artery calcifications with thinning of the left ventricular myocardial apex 4. Small defect within the anterior sternal cortex, likely chronic 5. Increased dependent parenchymal markings likely atelectatic CT cervical spine: No fractures or subluxation Chest [id number] with mild nonspecific mild right lung interstitial coarsening, coronary arterial stent, no airspace consolidation typical for pneumonia Echocardiogram post catheterization-technically difficult study with limited image quality, LV function normal, with mid to distal anterior wall motion abnor malities, mildly hypokinetic with akinesis of apex and distal inferior wall, no pericardial effusion ECG Additional Comments: ECG on 06/20/2020 1119 with normal sinus rhythm with mild ST segment depression and T wave inversions in the lateral leads ECG #2 status post cath on 06/20/2020 at 1450 with normal sinus rhythm, anterose ptal infarct with T wave inversions in the lateral leads but no further ST depression Code Status & VTE Plan VTE Prophylaxis Plan VTE Prophylaxis will be ordered: Yes PG Care Time/CCT Total # of Minutes Spent Total Time Spent with Patient: Total time spent is greater than 50% in coordination of care (as documented) at patient's floor/unit and/or counseling patient: Coding Level of Care Code 72565 Initial Inpt Care Lvl 3 Diagnoses Cardiac arrest I46.9 Coronary artery disease I25.10 Altered mental status R41.82 Hypertension I10 Dyslipidemia E78.5 Chronic sinusitis J32.9 DVT prophylaxis Z29.9
--- NOTE | 2020-06-20 15:35 | XCELERA ---
[id number] \\[id number]
[2020-06-20] MEDS: METOPROLOL TARTRATE 25 MG TAB PO SCH ×2 (16:56→20:28)
--- NOTE | 2020-06-20 18:03 | Cardiology Consultation ---
Date of Consultation June 20, 2020 Assessment & Plan (1) Cardiac arrest: 2. Severe multivessel coronary artery disease 3. Preserved LV function with apical dyskinesis 4. Postarrest confusion 5. History of hypertension 6. Dyslipidemia 7. Refractory chest wall pain Patient here after out of hospital cardiac arrest requiring a AED defibrillation x1 before ROSC. Cardiac catheterization showed acute on chronic progression of previously described severe multivessel disease from 2011. Unfortunately appears to have limited targets for bypass surgery and underwent PCI to ostial ramus and ostial LAD with acceptable result. He continues to have chest pain but appears to be more chest wall in nature following CPR. Unclear how much of his event was precipitated by ischemia from his severe ramus disease. Lesion did appear acute but had SHERI-3 flow throughout. In addition post arrest ECG with only subtle ST changes, initial troponin minimally elevated and no new regional wall motion abnormalities on echo. Noted again to have chronic apical akinesis/dyskinesis. Some concern event may have been mediated by prior MD scar. In that setting feel he may still benefit from ICD long-term. For now Trend troponin until peak Continue DAPT with aspirin, ticagrelor Titrate beta-kwasi as able. Continue ARB. Continue statin Symptom management of chest wall pain. No need for repeat ischemic evaluation unless significant ST changes on repeat EKG. Dr. Gregg to evaluate further for consideration of ICD History of Present Illness Attending Physician: Derick Cornejo MD History of Present Illness Mr. Marmolejo is a 45-year-old man with a history of premature, complex coronary artery disease post multiple PCI seen today on arrival to the ED after cardiac arrest. Patient is an inmate at [facility]. He was previously seen by Dr. Disla for his cardiac care 1 year ago. As of last catheterization at [facility] in 2011 was noted to have multiple stents from proximal LAD to distal LAD with residual latedistal LAD occlusion. Severe ostial ramus disease prior to a patent stent. RCA was chronically occluded with ipzu-oy-kdeoo collaterals. Had a dobutamine stress echocardiogram which showed normal LVEF with resting apical dyskinesis with poor augmentation of anterior, lateral apex at peak dobutamine. Appears to have been medically managed since that time. Today reportedly was found unresponsive, pulseless in the break room area. Received CPR from facility officers before AED applied and recommended defibrill ation. ROSC after defibrillation. Patient disoriented but alert and not intubated. ECG from ambulance showed sinus rhythm with minimal elevation in aVR and subtle lateral ST depressions. Heart alert activated from field. Upon arrival hemodynamically electrically stable. Patient confused and unable to provide significant history but endorsed severe chest pain. Head CT negative. Chest CTA negative for dissection, PE. Taken urgently for cardiac catheterization which revealed severe chronic multivessel disease. Acute finding appeared to be a 99% hazy ostial ramus stenosis. Also noted to have severe proximal LAD in-stent restenosis. Had SHERI-3 flow though throughout LAD, ramus and circumflex. Underwent PCI to ostial ramus with single ALEX as well as additional ALEX to ostial/proximal LAD in-stent restenosis. Mild residual ostial LAD and ramus disease but SHERI-3 flow throughout. During/post procedure patient still confused and endorsed severe chest pain which was positional and reproducible and seem to be more chest wall in nature. Allergies Allergy/AdvReac Type Severity Reaction Status Date / Time trazodone Allergy Severe LOW BP Verified 04/27/19 13:08 Home Medications Home Medications Medication Instructions Recorded Confirmed Type aspirin 325 mg tablet 325 mg PO DAILY #30 tab 04/17/19 04/17/19 Rx carvedilol 12.5 mg tablet 12.5 mg PO BID #60 tab 04/17/19 04/17/19 Rx clopidogrel 75 mg tablet 75 mg PO DAILY #30 tab 04/17/19 04/17/19 Rx isosorbide mononitrate 30 mg 30 mg PO DAILY #30 tab 04/17/19 04/17/19 Rx tablet,extended release 24 hr nitroglycerin 0.4 mg sublingual 0.4 mg SL Q5M PRN #20 tab 04/17/19 04/17/19 Rx tablet pravastatin 40 mg tablet 40 mg PO DAILY #30 tab 04/17/19 04/17/19 Rx sertraline 100 mg tablet 200 mg PO DAILY #30 tab 04/17/19 04/17/19 Rx Patient History Medical History Altered mental status CAD (coronary artery disease) Chronic sinusitis Coronary artery disease Dyslipidemia Hypertension Surgical History History of cholecystectomy History of coronary artery stent placement Hx of tonsillectomy Percutaneous transluminal coronary angioplasty status Family History Father Coronary heart disease, Onset Age: 30 Mother Hypertension Social History Smoking Status: Former smoker Age Started Using Tobacco: 17; Age Quit Using Tobacco: 43; packs per day: 1; Second Hand Exposure: No; Do You Dip or Chew Tobacco: No; Tobacco Cessation Education Requested by Patient: No Hx Alcohol Use: No Hx Substance Use: No Preferred Language: Albanian Communication Ability: Effective Sorter Laundry Articles Required: No Beliefs That Will Affect Care: None marital status: Unknown Current Living Situation: Other Current Living Situation Comment: care home current occupation: NA Other Information That Helps Us Care for You: No Feels Safe at Home: Yes Safety Concerns: Feels Safe At This Time Assistive Devices: None Review of Systems Review of Systems: Unobtainable due to cognitive status Physical Exam Physical Exam: General: Uncomfortable, confused HEENT: Sclerae anicteric Lungs: Distant breath sounds but clear Cardiac: Regular rate and rhythm, no murmurs Abdomen: Soft, obese, nontender Extremities: Warm, well perfused, no edema. 2+ radial pulses Skin: No rashes or lesions. Psych: Alert oriented to person Results & Data ([facility]) Vital Signs (Past 12 Hours) Vital Signs Temp Pulse Pulse Resp BP BP BP 06/20/20 17:01 97.5 F L 80 16 06/20/20 14:00 72 16 132/92 06/20/20 13:45 81 16 132/92 06/20/20 11:16 79 24 118/76 125/78 06/20/20 10:58 98.6 F 79 26 H 125/78 Pulse Ox 06/20/20 17:01 94 06/20/20 14:00 95 06/20/20 13:45 95 06/20/20 11:16 06/20/20 10:58 97 PG Care Time/CCT Total # of Minutes Spent Total Time Spent with Patient: Total time spent is greater than 50% in coordination of care (as documented) at patient's floor/unit and/or counseling patient: Coding Level of Care Code 80326 Inpt Consult Level 5 Diagnoses Cardiac arrest I46.9
[2020-06-20] MEDS: TICAGRELOR 90 MG TAB PO SCH (23:06)
[2020-06-21 05:08] LABS: Basophils # (auto) 0.01 K/uL (0-0.2); Basophils % (auto) 0.1 %; Eosinophils # (auto) 0.04 K/uL (0-0.5); Eosinophils % (auto) 0.4 %; Hematocrit (blood only) 40.2 % (42-52); Hemoglobin 13.6 g/dL (14.0-18.0); Immature Granulocytes # (auto) 0.03 K/uL (0.00-0.02); Immature Granulocytes % (auto) 0.3 %; Lymphocytes # (auto) 1.66 K/uL (1.2-3.4); Lymphocytes % (auto) 14.6 %; Mean Corpuscular Hemoglobin 29.9 pg (25-34); Mean Corpuscular Hgb Conc 33.8 g/dL (32-36); Mean Corpuscular Volume 88.4 fL (80-100); Mean Platelet Volume 10.9 fL (7.4-10.4); Monocytes # (auto) 0.94 K/uL (0.11-0.59); Monocytes % (auto) 8.3 %; Neutrophils # (auto) 8.69 K/uL (1.4-6.5); Neutrophils % (auto) 76.3 %; Platelet Count 190 K/uL (130-400); RDW Coefficient of Variation 14.3 % (11.5-14.5); RDW Standard Deviation 46.3 fL (36.4-46.3); Red Blood Count 4.55 M/uL (4.7-6.1); White Blood Count 11.37 K/uL (4.8-10.8)
[2020-06-21 05:29] LABS: BUN Creatinine Ratio 15.9 (10-20); Calcium 8.5 mg/dl (8.5-10.1); Creatinine Clr Calc Pharmacy 150.4 ml/min; Est GFR (African American) 124.4; Est GFR (Non-African American) 107.3; Magnesium 2.1 mg/dl (1.8-2.4)
[2020-06-21 05:32] LABS: Phosphorus 3.9 mg/dl (2.5-4.9)
[2020-06-21 06:50] LABS: Estimated Average Glucose 148 mg/dl; Hemoglobin A1C 6.8 % (4.5-5.6)
[2020-06-21] MEDS: TICAGRELOR 90 MG TAB PO SCH ×2 (07:56→20:32)
[2020-06-21] MEDS: LOSARTAN POTASSIUM 25 MG TAB PO SCH (07:57)
[2020-06-21] MEDS: METOPROLOL TARTRATE 25 MG TAB PO SCH ×3 (07:57→20:32)
[2020-06-21] MEDS: ATORVASTATIN 40 MG TAB PO SCH (07:57)
[2020-06-21] MEDS: ASPIRIN 81 MG ECTAB PO SCH (07:57)
--- NOTE | 2020-06-21 07:58 | Cardiology Progress Note ---
Date of Service June 21, 2020 Assessment & Plan (1) Cardiac arrest: His cardiac arrest appears to be a primary arrhythmia, based on his enzyme pattern and his initial electrocardiogram as well as his coronary angiography it does not appear that he had an acute event leading to his arrest. It is less common with normal left ventricular function then with left ventricular dysfunction, however he does have prior myocardial infarction and it certainly can occur. I would recommend an implantable defibrillator. I have tentatively planned on doing this Tuesday. The patient is agreeable. (2) Coronary artery disease: He has longstanding known coronary artery disease, he did have progression but is not clear that that had anything to do with his presentation. His cardiac enzymes and electrocardiogram do not suggest an acute infarction. I schemia is possible but cannot be easily prevented in the future. (3) Chest pain: His chest pain clearly seems musculoskeletal, I do not believe it is ischemic. That will probably continue for some time. (4) Hypertension: His blood pressure is elevated today, I do not believe he is received his medications as yet. It typically is not elevated, I will leave his medications alone but we should try to control his pressure closely over the long run. Admission and Anticipated Discharge Date Admission Date: June 20, 2020 Subjective I reviewed patient's cardiac history, his studies and his presentation yesterday. I had discussed the case with Dr. Cornejo yesterday. Today he is feeling well from a cardiac standpoint but continues to have chest discomfort which appears to be musculoskeletal, he tells me it feels as though he has broken ribs which is not surprising. He does state he has occasional shortness of breath but thinks is a pain from breathing. Physical Exam Physical Exam: Constitutional: Alert, cooperative and in no distress. He is extremely tender to palpation on his chest, including pressing with the stethoscope and with movement. HEENT: Unremarkable Neck: No jugular venous distention, carotid pulses are normal and equal bilaterally without bruits. Pulmonary: Clear to auscultation bilaterally. Cardiac: Regular rhythm with no murmur, gallop or rub. Abdomen: Soft, nontender with normal bowel sounds. Extremities: No edema. Distal pulses intact. Neurologic: No focal findings. Gait not tested. Skin: No rash, ecchymoses or petechiae. Results & Data ([facility]) Vital Signs (Past 12 Hours) Vital Signs Temp Pulse Resp BP Pulse Ox 06/21/20 04:25 74 20 152/95 H 94 06/21/20 04:00 36.6 C 77 14 96 06/21/20 03:25 80 14 159/92 H 94 06/21/20 03:00 84 18 95 06/21/20 02:25 86 16 140/86 94 06/21/20 02:00 84 19 94 06/21/20 01:25 87 15 150/107 H 96 06/21/20 01:00 86 16 94 06/21/20 00:25 84 16 132/88 95 06/21/20 00:00 37.2 C 86 21 95 06/20/20 23:25 79 12 134/79 96 06/20/20 23:00 86 14 95 06/20/20 22:25 87 17 129/69 94 06/20/20 22:00 82 17 95 06/20/20 21:25 80 14 115/69 94 06/20/20 21:00 78 16 93 06/20/20 20:25 77 11 L 102/76 92 06/20/20 20:00 37.1 C 78 18 Laboratory Results Cardiac Enzymes 06/20/20 06/20/20 06/21/20 Range/Units 11:23 19:46 01:50 AST 177 H (15-37) U/L CK-MB (CK-2) 3.1 (0.5-3.6) ng/ml Troponin I 0.096 H* 1.840 H* 1.580 H* (0-0.045) ng/ml Coagulation 06/20/20 Range/Units 11:23 PT 10.6 (9.0-12.0) Seconds APTT 23.5 (21.0-31.0) Seconds Lipids 06/21/20 Range/Units 04:27 Triglycerides 102 (0-150) mg/dl Cholesterol 116 (0-200) mg/dl HDL Cholesterol 41 mg/dl Cholesterol/HDL Ratio 3 CBC 06/20/20 06/21/20 Range/Units 11:23 04:27 WBC 10.23 11.37 H (4.8-10.8) K/uL RBC 4.89 4.55 L (4.7-6.1) M/uL Hgb 14.5 13.6 L (14.0-18.0) g/dL Hct 43.4 40.2 L (42-52) % Plt Count 211 190 (130-400) K/uL Neut # (Auto) 7.72 H 8.69 H (1.4-6.5) K/uL Lymph # (Auto) 1.48 1.66 (1.2-3.4) K/uL Alcorn # (Auto) 0.74 H 0.94 H (0.11-0.59) K/uL Eos # (Auto) 0.21 0.04 (0-0.5) K/uL Baso # (Auto) 0.01 0.01 (0-0.2) K/uL Comprehensive Metabolic Panel 06/20/20 06/21/20 Range/Units 11:23 04:27 Sodium 139 139 (136-145) mmol/L Potassium 4.3 4.0 (3.5-5.1) mmol/L Chloride 108 H 108 H (98-107) mmol/L Carbon Dioxide 21 24 (21-32) mmol/L BUN 10 13 (7-18) mg/dl Creatinine 1.00 0.81 (0.6-1.4) mg/dl Glucose 143 H 102 H (70-99) mg/dl Calcium 8.6 8.5 (8.5-10.1) mg/dl AST 177 H (15-37) U/L ALT 236 H (12-78) U/L Alkaline Phosphatase 63 (45-117) U/L Total Protein 6.8 (6.4-8.2) gm/dl Albumin 3.2 L (3.4-5.0) gm/dl Intake and Output 06/20/20 06/21/20 06/21/20 22:59 06:59 14:59 Intake Total 342 / 1462 1000 / 1462 Output Total 0 / 650 650 / 650 Balance 342 / 812 350 / 812 Intake: IV 750 / 750 Nss 1000ML 1,000 ml @ 100 mls/ 750 / 750 hr IV .Q10H YUKI Rx#:[id number] Oral 342 / 712 250 / 712 Output: Urine 0 / 650 650 / 650 Diagnostic Findings Telemetry: Sinus rhythm, no significant arrhythmia PG Care Time/CCT Total # of Minutes Spent Total Time Spent with Patient: Total time spent is greater than 50% in coordination of care (as documented) at patient's floor/unit and/or counseling patient: Coding Level of Care Code 85497 Subseq Hosp Care Lvl 3 Diagnoses Cardiac arrest I46.9 Coronary artery disease I25.10 Chest pain R07.9 Hypertension I10
--- NOTE | 2020-06-21 09:53 | Critical Care Progress Note ---
Date of Service June 21, 2020 Assessment & Plan (1) Cardiac arrest: 45-year-old male with a past medical history of ischemic cardiomyopathy, coronary artery disease, obesity and hypertension presenting to the hospital status post cardiac arrest. Patient underwent PCI to the ostial ramus with a single drug-eluting stent and PCI of ostial to proximal LAD with single drug-eluting stent. Continue dual antiplatelets. Troponin to peak. Echo was a limited study due to technical difficulties. Left ventricular systolic function appeared normal. No obvious regional wall motion abnormalities. Continue beta-kwasi and JOVITA. Cardiology will likely place an AICD on Tuesday. Continue statin. Lipid panel and A1c checked. Lidocaine patch for chest pain as needed. Altered mental status is resolved. Patient can be downgraded to the telemetry floor today. (2) Percutaneous transluminal coronary angioplasty status: (3) Altered mental status: (4) Coronary artery disease: Admission and Anticipated Discharge Date Admission Date: June 20, 2020 Subjective Patient in bed. No significant points aside from some mild chest pain on palpation. No issues overnight with hemodynamics. Review of Systems Review of Systems: All systems reviewed & are unremarkable except as noted in HPI & below Physical Exam Constitutional: WD/WN, vitals as above Eyes: PERRL, conjunctivae normal, anicteric sclerae ENMT: external ear and nose normal, oropharynx normal Respiratory: normal respiratory effort, lungs clear to auscultation Cardiovascular: RRR, no murmur, no edema Gastrointestinal (Abdomen): normal bowel sounds, soft, nontender, no hepatosplenomegaly Musculoskeletal: no cyanosis or clubbing, extremities motor strength 5/5 Skin: no rashes, warm and dry Neurologic: PERRL, EOMI, accommodation nl, no face palsy, no dysarthria Psychiatric: A+Ox3, euthymic affect Results & Data Results & Data ([facility]) Vital Signs (Past 12 Hours) Vital Signs Temp Pulse Resp BP Pulse Ox 06/21/20 08:00 98.2 F 85 21 95 06/21/20 07:25 83 18 154/99 H 94 06/21/20 07:00 76 14 94 06/21/20 06:00 81 10 L 95 06/21/20 05:25 83 13 158/98 H 94 06/21/20 05:00 82 12 94 06/21/20 04:30 77 16 95 06/21/20 04:25 74 20 152/95 H 94 06/21/20 04:00 97.9 F 77 14 96 06/21/20 03:25 80 14 159/92 H 94 06/21/20 03:00 84 18 95 06/21/20 02:25 86 16 140/86 94 06/21/20 02:00 84 19 94 06/21/20 01:25 87 15 150/107 H 96 06/21/20 01:00 86 16 94 06/21/20 00:25 84 16 132/88 95 06/21/20 00:00 99.0 F 86 21 95 06/20/20 23:25 79 12 134/79 96 06/20/20 23:00 86 14 95 06/20/20 22:25 87 17 129/69 94 06/20/20 22:00 82 17 95 Coding Level of Care Code 84068 Subseq Hosp Care Lvl 2 Diagnoses Cardiac arrest I46.9 Percutaneous transluminal coronary angioplasty status Z98.61 Altered mental status R41.82 Coronary artery disease I25.10
[2020-06-21] MEDS ORDERED: MAGNESIUM HYDROXIDE SUSP 30 ML UDC PO PRN (14:54)
--- NOTE | 2020-06-21 14:54 | Hospitalist Progress Note ---
Date of Service June 21, 2020 Assessment & Plan (1) Cardiac arrest: With cardiac arrest at the present with CPR started and 1 shock administered by AED With chest pain ongoing after resuscitation more so likely secondary to musculoskeletal pain from CPR, however cardiac arrest thought to be due to the 99% stenosis found on urgent cardiac catheterization in the ramus prior to the patent proximal stent. Cardiac arrest alternatively could be from ventricular arrhythmia secondary to myocardial infarction scar. With some postarrest confusion possibly secondary to anoxia-now resolved CT angiogram of the chest negative for PE or dissection. CT of the head negative for acute disease. Now status post urgent PCI with stents to the ostial ramus and proximal LAD Echocardiogram post catheterization with preserved LV function Vital signs are stable at the time of admission after cardiac catheterization -Admit to ICU for close monitoring -Loaded with Brilinta in the Housekeeping Coordinator will continue dual antiplatelet therapy with aspirin and Brilinta-holding home Plavix -Cardiology started him on metoprolol tartrate 25 mg p.o. 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 -COVID-19 neg Planning ICD on Tuesday (2) Coronary artery disease: As noted above, known to be severe, not a candidate for CABG at this time given multiple stents in the LAD-not good options for sewing a graft in place as per cardiology -Continue management with medications as above Holding home isosorbide (3) Altered mental status: Secondary to post arrest, possibly anoxic brain injury-now much improved Follow along and consider imaging of the brain if worsens (4) Hypertension: Blood pressures are controlled -Continue metoprolol, added losartan as above Holding home isosorbide (5) Dyslipidemia: Switch pravastatin to atorvastatin although patient reports he was switched to atorvastatin last year-home med rec likely not updated Lipids as above (6) Chronic sinusitis: Noted previously and on CT of the head No acute issues COVID-19 is negative (7) DVT prophylaxis: SCDs, Brilinta, aspirin Eventually back to long term Admission and Anticipated Discharge Date Admission Date: June 20, 2020 Subjective Pt has a lot of chest soreness, but no other pains. He does feel SOB when he tries to take a deep breath, but feels this is due to his chest soreness. No enma SOB. Tolerating PO without issue. Pt denies fever, abd pain, n/v/d, LE pain or swelling. States he has not had a bowel movement today, but does not feel constipated. Not a general issue for him. Review of Systems Review of Systems: Pertinent positives and negatives reviewed in HPI--all others negative Physical Exam Constitutional: WD/WN, vitals as above Eyes: normal visual zavala by confrontation and + anicteric sclerae Neck: normal visual inspection and trachea midline Respiratory: normal respiratory effort, lungs clear to auscultation Cardiovascular: Rate/Rhythm: regular rate and regular rhythm Gastrointestinal (Abdomen): Inspection/Auscultation: abdomen not distended Percussion/Palpation: abdomen soft; abdomen nontender Musculoskeletal: Head/Neck/Chest: normocephalic and head atraumatic negative for edema, peripheral pulses intact Skin: no rashes, warm and dry Neurologic: awake; not confused Speech / Cognition: normal speech Psychiatric: A+Ox3, euthymic affect Results & Data Results & Data ([facility]) Vital Signs (Past 12 Hours) Vital Signs Temp Pulse Resp BP Pulse Ox 06/21/20 14:00 77 19 96 06/21/20 13:25 75 16 157/95 H 06/21/20 13:00 74 16 06/21/20 12:25 78 14 166/95 H 95 06/21/20 12:00 36.8 C 77 16 94 06/21/20 11:25 77 9 L 162/102 H 95 06/21/20 11:00 73 11 L 95 06/21/20 10:25 73 10 L 147/83 H 95 06/21/20 10:00 76 14 95 06/21/20 09:50 78 12 153/94 H 93 06/21/20 09:25 79 13 153/94 H 06/21/20 09:00 79 13 06/21/20 08:25 83 14 166/101 H 94 06/21/20 08:00 36.8 C 85 21 95 06/21/20 07:25 83 18 154/99 H 94 06/21/20 07:00 76 14 94 06/21/20 06:00 81 10 L 95 06/21/20 05:25 83 13 158/98 H 94 06/21/20 05:00 82 12 94 06/21/20 04:30 77 16 95 06/21/20 04:25 74 20 152/95 H 94 06/21/20 04:00 36.6 C 77 14 96 06/21/20 03:25 80 14 159/92 H 94 06/21/20 03:00 84 18 95 PG Care Time/CCT Total # of Minutes Spent Total Time Spent with Patient: Total time spent is greater than 50% in coordination of care (as documented) at patient's floor/unit and/or counseling patient: Coding Level of Care Code 67726 Subseq Hosp Care Lvl 3 Diagnoses Cardiac arrest I46.9 Coronary artery disease I25.10 Altered mental status R41.82 Hypertension I10 Dyslipidemia E78.5 Chronic sinusitis J32.9 DVT prophylaxis Z29.9
[2020-06-22 05:02] LABS: BUN Creatinine Ratio 18.2 (10-20); Calcium 8.8 mg/dl (8.5-10.1); Creatinine Clr Calc Pharmacy 166.9 ml/min; Est GFR (African American) 129.8; Potassium 4.2 mmol/L (3.5-5.1)
[2020-06-22] MEDS: ATORVASTATIN 40 MG TAB PO SCH (07:43)
[2020-06-22] MEDS: TICAGRELOR 90 MG TAB PO SCH ×2 (07:43→20:20)
[2020-06-22] MEDS: ASPIRIN 81 MG ECTAB PO SCH (07:44)
[2020-06-22] MEDS: LOSARTAN POTASSIUM 25 MG TAB PO SCH (07:44)
--- NOTE | 2020-06-22 07:44 | Electrocardiogram Report ---
Test Reason : Blood Pressure : / mmHG Vent. Rate : 078 BPM Atrial Rate : 078 BPM P-R Int : 192 ms QRS Dur : 082 ms QT Int : 368 ms P-R-T Axes : 063 005 204 degrees QTc Int : 419 ms Poor data quality, interpretation may be adversely affected Normal sinus rhythm with sinus arrhythmia Anteroseptal infarct , age undetermined Abnormal ECG No previous ECGs available Confirmed by Karri Gregg ([id number]) on 06/22/2020 7:44:13 AM Referred By: REFERRED SELF Confirmed By:Karri Gregg
[2020-06-22] MEDS: METOPROLOL TARTRATE 25 MG TAB PO SCH ×3 (08:08→20:20)
--- NOTE | 2020-06-22 08:23 | Electrocardiogram Report ---
Test Reason : Blood Pressure : / mmHG Vent. Rate : 073 BPM Atrial Rate : 073 BPM P-R Int : 182 ms QRS Dur : 090 ms QT Int : 378 ms P-R-T Axes : 041 004 -58 degrees QTc Int : 416 ms Normal sinus rhythm Anteroseptal infarct (cited on or before 20-JUN-2020) Abnormal ECG When compared with ECG of 20-JUN-2020 11:19, (unconfirmed) Serial changes of evolving Anteroseptal infarct Present Confirmed by Karri Gregg ([id number]) on 06/22/2020 8:23:02 AM Referred By: REFERRED SELF Confirmed By:Karri Gregg
--- NOTE | 2020-06-22 09:20 | Cardiology Progress Note ---
Date of Service June 22, 2020 Assessment & Plan (1) Cardiac arrest: His cardiac arrest appears to be a primary arrhythmia, based on his enzyme pattern and his initial electrocardiogram as well as his coronary angiography it does not appear that he had an acute event leading to his arrest. It is less common with normal left ventricular function then with left ventricular dysfunction, however he does have prior myocardial infarction and it certainly can occur. I would recommend an implantable defibrillator. I have tentatively planned on doing this Tuesday. The patient is agreeable. I discussed the indications, procedure, risks, and alternatives with him and he understands and agrees to proceed. (2) Coronary artery disease: He has longstanding known coronary artery disease, he did have progression but is not clear that that had anything to do with his presentation. His cardiac enzymes and electrocardiogram do not suggest an acute infarction. Ischemia is possible but cannot be easily prevented in the future. (3) Chest pain: His chest pain clearly seems musculoskeletal, I do not believe it is ischemic. That will probably continue for some time. (4) Hypertension: His blood pressure is elevated today, I do not believe he is received his medications as yet. It typically is not elevated, I will leave his medications alone but we should try to control his pressure closely over the long run. Admission and Anticipated Discharge Date Admission Date: June 20, 2020 Subjective He is feeling well today, he continues to have musculoskeletal discomfort. Physical Exam Physical Exam: Constitutional: Alert, cooperative and in no distress. He is extremely tender to palpation on his chest, including pressing with the st ethoscope and with movement. HEENT: Unremarkable Neck: No jugular venous distention, carotid pulses are normal and equal bilaterally without bruits. Pulmonary: Clear to auscultation bilaterally. Cardiac: Regular rhythm with no murmur, gallop or rub. Abdomen: Soft, nontender with normal bowel sounds. Extremities: No edema. Distal pulses intact. Neurologic: No focal findings. Gait not tested. Skin: No rash, ecchymoses or petechiae. Results & Data ([facility]) Vital Signs (Past 12 Hours) Vital Signs Temp Pulse Resp BP Pulse Ox 06/22/20 07:00 70 15 94 06/22/20 06:26 67 15 151/111 H 93 06/22/20 06:00 67 14 94 06/22/20 05:26 65 15 142/97 H 94 06/22/20 05:00 69 11 L 92 06/22/20 04:26 70 16 150/93 H 93 06/22/20 04:00 36.4 C L 73 15 93 06/22/20 03:26 69 15 127/84 95 06/22/20 03:00 70 13 95 06/22/20 02:26 69 14 144/77 H 94 06/22/20 02:00 64 8 L 92 06/22/20 01:26 70 14 146/100 H 95 06/22/20 01:00 68 7 L 95 06/22/20 00:27 70 14 96 06/22/20 00:26 70 15 137/86 94 06/22/20 00:00 36.8 C 66 12 91 06/21/20 23:26 73 13 154/111 H 91 06/21/20 23:00 72 26 H 94 06/21/20 22:26 70 10 L 166/86 H 96 06/21/20 22:00 75 16 95 06/21/20 21:57 77 15 166/101 H 96 06/21/20 21:42 77 16 163/111 H 96 06/21/20 21:26 70 11 L 156/108 H 96 Laboratory Results Comprehensive Metabolic Panel 06/22/20 Range/Units 04:24 Sodium 138 (136-145) mmol/L Potassium 4.2 (3.5-5.1) mmol/L Chloride 107 (98-107) mmol/L Carbon Dioxide 25 (21-32) mmol/L BUN 13 (7-18) mg/dl Creatinine 0.73 (0.6-1.4) mg/dl Glucose 118 H (70-99) mg/dl Calcium 8.8 (8.5-10.1) mg/dl Intake and Output 06/21/20 06/22/20 06/22/20 22:59 06:59 14:59 Intake Total 250 / 1770 1100 / 1770 Output Total 2075 132 / 2075 Balance -500 / -306 -226 / -306 Intake: Oral 250 / 1770 1100 / 1770 Output: Urine 2074 [id number] # Bowel Movements Other: # Unmeasured Voids 1 Weight 130.9 kg Diagnostic Findings Telemetry: Sinus rhythm, no significant arrhythmia. PG Care Time/CCT Total # of Minutes Spent Total Time Spent with Patient: Total time spent is greater than 50% in coordination of care (as documented) at patient's floor/unit and/or counseling patient: Coding Level of Care Code 36496 Subseq Hosp Care Lvl 3 Diagnoses Cardiac arrest I46.9 Coronary artery disease I25.10 Chest pain R07.9 Hypertension I10
--- NOTE | 2020-06-22 09:56 | Critical Care Progress Note ---
Date of Service June 22, 2020 Assessment & Plan (1) Cardiac arrest: 45-year-old male with a past medical history of ischemic cardiomyopathy, coronary artery disease, obesity and hypertension presenting to the hospital status post cardiac arrest. Patient underwent PCI to the ostial ramus with a single drug-eluting stent and PCI of ostial to proximal LAD with single drug-eluting stent. Continue dual antiplatelets. Troponin peaked yesterday. Echo was a limited study due to technical difficulties. Left ventricular systolic function appeared normal. No obvious regional wall motion abnormalities. Continue beta- kwasi and JOVITA. I titrated up his losartan to 50 mg daily. Additional 25 mg dose today. Cardiology will likely place an AICD on Tuesday. Continue statin. Lipid panel and A1c checked. Lidocaine patch for chest pain as needed. Altered mental status is resolved. Patient can be downgraded to the telemetry floor today. (2) Percutaneous transluminal coronary angioplasty status: (3) Altered mental status: (4) Coronary artery disease: Admission and Anticipated Discharge Date Admission Date: June 20, 2020 Subjective Patient endorsing some mild chest pain and shortness of breath intermittently this morning. He is sleeping otherwise. No significant hemodynamic or electrical issues overnight. Blood pressure little bit elevated to 156/103. Review of Systems Review of Systems: All systems reviewed & are unremarkable except as noted in HPI & below Physical Exam Constitutional: WD/WN, vitals as above Eyes: PERRL, conjunctivae normal, anicteric sclerae ENMT: external ear and nose normal, oropharynx normal Respiratory: normal respiratory effort, lungs clear to auscultation Cardiovascular: RRR, no murmur, no edema Gastrointestinal (Abdomen): normal bowel sounds, soft, nontender, no hepatosplenomegaly Musculoskeletal: no cyanosis or clubbing, extremities motor strength 5/5 Skin: no rashes, warm and dry Neurologic: PERRL, EOMI, accommodation nl, no face palsy, no dysarthria Psychiatric: A+Ox3, euthymic affect Results & Data Results & Data ([facility]) Vital Signs (Past 12 Hours) Vital Signs Temp Pulse Resp BP Pulse Ox 06/22/20 09:26 71 14 156/103 H 92 06/22/20 09:00 75 17 94 06/22/20 08:26 72 18 167/92 H 95 06/22/20 08:00 98.8 F 72 12 91 06/22/20 07:26 75 22 164/104 H 93 06/22/20 07:00 70 15 94 06/22/20 06:26 67 15 151/111 H 93 06/22/20 06:00 67 14 94 06/22/20 05:26 65 15 142/97 H 94 06/22/20 05:00 69 11 L 92 06/22/20 04:26 70 16 150/93 H 93 06/22/20 04:00 97.5 F L 73 15 93 06/22/20 03:26 69 15 127/84 95 06/22/20 03:00 70 13 95 06/22/20 02:26 69 14 144/77 H 94 06/22/20 02:00 64 8 L 92 06/22/20 01:26 70 14 146/100 H 95 06/22/20 01:00 68 7 L 95 06/22/20 00:27 70 14 96 06/22/20 00:26 70 15 137/86 94 06/22/20 00:00 98.2 F 66 12 91 06/21/20 23:26 73 13 154/111 H 91 06/21/20 23:00 72 26 H 94 06/21/20 22:26 70 10 L 166/86 H 96 06/21/20 22:00 75 16 95 06/21/20 21:57 77 15 166/101 H 96 I reviewed imaging, labs and vital signs Coding Level of Care Code 16085 Subseq Hosp Care Lvl 3 Diagnoses Cardiac arrest I46.9 Percutaneous transluminal coronary angioplasty status Z98.61 Altered mental status R41.82 Coronary artery disease I25.10
[2020-06-22] MEDS ORDERED: LOSARTAN POTASSIUM 25 MG TAB PO ONE (10:00)
--- NOTE | 2020-06-22 11:22 | Hospitalist Progress Note ---
Date of Service June 22, 2020 Assessment & Plan (1) Cardiac arrest: With cardiac arrest at the present with CPR started and 1 shock administered by AED With chest pain ongoing after resuscitation more so likely secondary to musculoskeletal pain from CPR, however cardiac arrest thought to be due to the 99% stenosis found on urgent cardiac catheterization in the ramus prior to the patent proximal stent. Cardiac arrest alternatively could be from ventricular arrhythmia secondary to myocardial infarction scar. With some postarrest confusion possibly secondary to anoxia-now resolved CT angiogram of the chest negative for PE or dissection. CT of the head negative for acute disease. Now status post urgent PCI with stents to the ostial ramus and proximal LAD Echocardiogram post catheterization with preserved LV function Vital signs are stable at the time of admission after cardiac catheterization -Admit to ICU for close monitoring -Loaded with Brilinta in the [employer] will continue dual antiplatelet therapy with aspirin and Brilinta-holding home Plavix -Cardiology started him on metoprolol tartrate 25 mg p.o. 3 times daily for now (is on carvedilol as an outpatient), atorvastatin 80 mg once daily (home med rec listed as being on pravastatin 40 mg daily as an outpatient, although patient reports he was switched to Lipitor last year), and starting losartan 25 mg once daily Trop peak at 1.86 and now trending down Lipids WNL with LDL 55, HDL 41 A1c 6.8 Follow CBC, CMP, magnesium, phosphorus Appreciate cardiology and moshgiach management -COVID-19 neg Planning ICD on Tuesday (2) Coronary artery disease: As noted above, known to be severe, not a candidate for CABG at this time given multiple stents in the LAD-not good options for sewing a graft in place as per cardiology -Continue management with medications as above Holding home isosorbide (3) Altered mental status: Secondary to post arrest, possibly anoxic brain injury-now much improved Follow along and consider imaging of the brain if worsens (4) Hypertension: Blood pressures are controlled -Continue metoprolol, added losartan as above Holding home isosorbide (5) Dyslipidemia: Switch pravastatin to atorvastatin although patient reports he was switched to atorvastatin last year-home med rec likely not updated Lipids as above (6) Chronic sinusitis: Noted previously and on CT of the head No acute issues COVID-19 is negative (7) DVT prophylaxis: SCDs, Brilinta, aspirin Eventually back to custodial Admission and Anticipated Discharge Date Admission Date: June 20, 2020 Subjective Pt with ongoing chest soreness, but it is improving. No new chest pain. No SOB. Tolerating PO, but decreased appetite this AM with breakfast. Pt denies fever, abd pain, n/v/c/d, LE pain or swelling. Review of Systems Review of Systems: Pertinent positives and negatives reviewed in HPI--all others negative Physical Exam Constitutional: WD/WN, vitals as above Eyes: normal visual zavala by confrontation and + anicteric sclerae Neck: normal visual inspection and trachea midline Respiratory: normal respiratory effort, lungs clear to auscultation Cardiovascular: Rate/Rhythm: regular rate and regular rhythm Gastrointestinal (Abdomen): Inspection/Auscultation: abdomen not distended Percussion/Palpation: abdomen soft; abdomen nontender Musculoskeletal: Head/Neck/Chest: normocephalic and head atraumatic Skin: no rashes, warm and dry Neurologic: awake; not confused Speech / Cognition: normal speech Psychiatric: A+Ox3, euthymic affect Results & Data Results & Data ([facility]) Vital Signs (Past 12 Hours) Vital Signs Temp Pulse Pulse Resp BP BP Pulse Ox 06/22/20 11:04 36.6 C 67 20 146/98 H 97 06/22/20 09:26 71 14 156/103 H 92 06/22/20 09:00 75 17 94 06/22/20 08:26 72 18 167/92 H 95 06/22/20 08:00 37.1 C 72 12 91 06/22/20 07:26 75 22 164/104 H 93 06/22/20 07:00 70 15 94 06/22/20 06:26 67 15 151/111 H 93 06/22/20 06:00 67 14 94 06/22/20 05:26 65 15 142/97 H 94 06/22/20 05:00 69 11 L 92 06/22/20 04:26 70 16 150/93 H 93 06/22/20 04:00 36.4 C L 73 15 93 06/22/20 03:26 69 15 127/84 95 06/22/20 03:00 70 13 95 06/22/20 02:26 69 14 144/77 H 94 06/22/20 02:00 64 8 L 92 06/22/20 01:26 70 14 146/100 H 95 06/22/20 01:00 68 7 L 95 06/22/20 00:27 70 14 96 06/22/20 00:26 70 15 137/86 94 06/22/20 00:00 36.8 C 66 12 91 06/21/20 23:26 73 13 154/111 H 91 PG Care Time/CCT Total # of Minutes Spent Total Time Spent with Patient: Total time spent is greater than 50% in coordination of care (as documented) at patient's floor/unit and/or counseling patient: Coding Level of Care Code 61537 Subseq Hosp Care Lvl 2 Diagnoses Cardiac arrest I46.9 Coronary artery disease I25.10 Altered mental status R41.82 Hypertension I10 Dyslipidemia E78.5 Chronic sinusitis J32.9 DVT prophylaxis Z29.9
[2020-06-22] MEDS: ACETAMINOPHEN 325 MG TAB PO PRN ×2 (11:27→19:25)
[2020-06-22] MEDS: LACTATED RINGER'S 1,000 ML IV SCH (11:32)
[2020-06-22 22:05] LABS: Appearance Urine Cloudy (Clear); Bacteria Urine Automated Negative (Negative); Bilirubin Urine Negative (Negative); Blood Urine 3+ (Negative); Cast Urine Automated 0 /lpf (0-5); Color Urine Orange; Epithelial Cell Urine Auto 0-5 /lpf (0-5); Glucose Urine UA Negative (Negative); Ketones Urine Negative (Negative); Leukocyte Esterase Urine 2+ (Negative); Nitrite Urine Positive (Negative); RBC Urine Automated >30 /hpf (0-4); Specific Gravity Urine 1.015 (1.000-1.030); Urobilinogen Urine Negative (Negative); WBC Urine Automated >30 /hpf (0-5)
[2020-06-22 22:19] LABS: Protein Urine 1+ (Negative); Sulfosalicylic Acid Urine Positive (Negative)
[2020-06-23] MEDS ORDERED: CEFAZOLIN 3000MG/72.5 ML BAG IV SCH (06:00)
[2020-06-23] MEDS: LACTATED RINGER'S 1,000 ML IV SCH (07:53)
[2020-06-23] MEDS: METOPROLOL TARTRATE 25 MG TAB PO SCH ×3 (07:54→20:07)
[2020-06-23] MEDS: ATORVASTATIN 40 MG TAB PO SCH (07:55)
[2020-06-23] MEDS: TICAGRELOR 90 MG TAB PO SCH ×2 (07:55→20:07)
[2020-06-23] MEDS: ASPIRIN 81 MG ECTAB PO SCH (07:56)
[2020-06-23] MEDS: LOSARTAN POTASSIUM 50 MG TAB PO SCH (07:56)
--- NOTE | 2020-06-23 09:31 | Hospitalist Progress Note ---
Date of Service June 23, 2020 Assessment & Plan (1) Cardiac arrest: With cardiac arrest - CPR and 1 shock administered by AED With chest pain ongoing after resuscitation more so likely secondary to musculoskeletal pain from CPR, however cardiac arrest thought to be due to the 99% stenosis found on urgent cardiac catheterization in the ramus prior to the patent proximal stent. Cardiac arrest alternatively could be from ventricular arrhythmia secondary to myocardial infarction scar. mental status clear CT angiogram of the chest negative for PE or dissection. CT of the head negative for acute disease. Now status post urgent PCI with stents to the ostial ramus and proximal LAD Echocardiogram post catheterization with preserved LV function Vital signs are stable at the time of admission after cardiac catheterization remain on PCU today -Loaded with Brilinta in the Pattern Clerk will continue dual antiplatelet therapy with aspirin and Brilinta-holding home Plavix -Cardiology started him on metoprolol tartrate 25 mg p.o. 3 times daily for now (is on carvedilol as an outpatient), atorvastatin 80 mg once daily (home med rec listed as being on pravastatin 40 mg daily as an outpatient, although patient reports he was switched to Lipitor last year), and starting losartan 25 mg once daily Trop peak at 1.86 and now trending down Lipids WNL with LDL 55, HDL 41 A1c 6.8 Follow CBC, CMP, magnesium, phosphorus Appreciate cardiology and coat check attendant management -COVID-19 neg Planning ICD for Tuesday could likely be discharged to [facility] on Tuesday morning (2) Coronary artery disease: As noted above, known to be severe, not a candidate for CABG at this time given multiple stents in the LAD-not good options for sewing a graft in place as per cardiology -Continue management with medications as above Holding home isosorbide, BP is stable (3) Altered mental status: Secondary to post arrest, possibly anoxic brain injury-now much improved CT head negative for acute changes (4) Hypertension: Blood pressures are controlled -Continue metoprolol, added losartan as above Holding home isosorbide (5) Dyslipidemia: Switch pravastatin to atorvastatin although patient reports he was switched to atorvastatin last year-home med rec likely not updated Lipids as above (6) Chronic sinusitis: Noted previously and on CT of the head No acute issues COVID-19 is negative (7) DVT prophylaxis: SCDs, Brilinta, aspirin Eventually back to shelter, likely Tuesday after ICD Tuesday Admission and Anticipated Discharge Date Admission Date: June 20, 2020 Subjective patient doing well, just c/o chest pain that is musculoskeletal from cardiac arrest, CPR hurts a little when he takes a deep breath he is eating well, had breakfast this morning after ICD rescheduled for tomorrow vitals stable appreciate cardiology input Review of Systems Review of Systems: All systems reviewed & are unremarkable except as noted in Subjective Physical Exam Constitutional: WD/WN, vitals as above Eyes: PERRL, conjunctivae normal, anicteric sclerae ENMT: external ear and nose normal, oropharynx normal Neck: trachea midline, no thyromegaly Respiratory: normal respiratory effort, lungs clear to auscultation Cardiovascular: RRR, no murmur, no edema Gastrointestinal (Abdomen): normal bowel sounds, soft, nontender, no hepatosplenomegaly Musculoskeletal: no cyanosis or clubbing, extremities motor strength 5/5 Skin: no rashes, warm and dry Neurologic: patellar DTR's 2+ bilat, sensation intact and PERRL, EOMI, accommodation nl, no face palsy, no dysarthria Psychiatric: A+Ox3, euthymic affect Lymphatic: no cervical or axillary lymphadenopathy Results & Data Results & Data ([facility]) Vital Signs (Past 12 Hours) Vital Signs Temp Pulse Resp BP Pulse Ox 06/23/20 07:09 36.5 C 66 19 126/88 96 06/23/20 04:09 36.7 C 65 18 134/83 94 06/22/20 23:12 36.7 C 66 18 150/89 H 95 Laboratory Results Laboratory Results - last 24 hr 06/22/20 20:30 Urine Color [place] Urine Appearance Cloudy A Urine pH 8.0 H Ur Specific [place] 1.015 Urine Protein 1+ H Urine Glucose (UA) Negative Urine Ketones Negative Urine Blood 3+ H Urine Nitrite Positive A Urine Bilirubin Negative Urine Urobilinogen Negative Ur Leukocyte Esterase 2+ H Urine WBC (Auto) >30 H Urine RBC (Auto) >30 H U Hyaline Cast (Auto) 0 U Epithel Cells (Auto) 0-5 Urine Bacteria (Auto) Negative Medications Administered Current Inpatient Medications Acetaminophen (Acetaminophen 325 Mg Tab) 650 mg PO Q4H PRN PRN Reason: MILD Pain (Scale 1,2,3) Stop: 07/20/20 13:38 Last Admin: 06/22/20 19:25 Dose: 650 mg Documented by: Aspirin (Aspirin 81 Mg Ectab) 81 mg PO QAM [facility] Stop: 07/21/20 08:59 Last Admin: 06/23/20 07:56 Dose: 81 mg Documented by: Atorvastatin Calcium (Atorvastatin 40 Mg Tab) 80 mg PO QAM [facility] Stop: 07/21/20 08:59 Last Admin: 06/23/20 07:55 Dose: 80 mg Documented by: Cefazolin Sodium (Cefazolin 3000mg/72.5 Ml Bag) 3,000 mg IV PREOP [facility]; Protocol Stop: 06/24/20 05:59 Lactated Ringer's (Lr) 1,000 mls @ 15 mls/hr IV .Q24H [facility] Stop: 06/27/20 02:39 Losartan Potassium (Losartan Potassium 50 Mg Tab) 50 mg PO QAM [facility] Stop: 07/23/20 08:59 Last Admin: 06/23/20 07:56 Dose: 50 mg Documented by: Magnesium Hydroxide (Magnesium Hydroxide Susp 30 Ml Udc) 30 ml PO Q6H PRN PRN Reason: constipation Stop: 07/21/20 14:53 Metoprolol Tartrate (Metoprolol Tartrate 25 Mg Tab) 25 mg PO TID [facility] Stop: 07/20/20 13:59 Last Admin: 06/23/20 07:54 Dose: 25 mg Documented by: Nitroglycerin (Nitroglycerin Sl 0.4 Mg/Tab Tab) 0.4 mg SL PRN PRN PRN Reason: Chest Pain Stop: 07/20/20 13:43 Ondansetron HCl (Ondansetron Inj 2 Mg/Ml 2 Ml Vial) 4 mg IV Q6H PRN PRN Reason: Nausea And Vomiting Stop: 07/20/20 13:38 Ticagrelor (Ticagrelor 90 Mg Tab) 90 mg PO BID [facility] Stop: 07/20/20 23:49 Last Admin: 06/23/20 07:55 Dose: 90 mg Documented by: PG Care Time/CCT Total # of Minutes Spent Total Time Spent with Patient: Total time spent is greater than 50% in coordination of care (as documented) at patient's floor/unit and/or counseling patient: Coding Level of Care Code 96777 Subseq Hosp Care Lvl 2 Diagnoses Cardiac arrest I46.9 Coronary artery disease I25.10 Altered mental status R41.82 Hypertension I10 Dyslipidemia E78.5 Chronic sinusitis J32.9 DVT prophylaxis Z29.9
--- NOTE | 2020-06-23 10:27 | Cardiology Progress Note ---
Date of Service June 23, 2020 Assessment & Plan (1) Cardiac arrest: His cardiac arrest appears to be a primary arrhythmia, based on his enzyme pattern and his initial electrocardiogram as well as his coronary angiography it does not appear that he had an acute event leading to his arrest. It is less common with normal left ventricular function then with left ventricular dysfunction, however he does have prior myocardial infarction and it certainly can occur. I have recommended an implantable defibrillator. I was tentatively planned for this morning, however due to scheduling it could not be done. I have him scheduled for tomorrow afternoon. The patient is agreeable. (2) Coronary artery disease: He has longstanding known coronary artery disease, he did have progression but is not clear that that had anything to do with his presentation. His cardiac enzymes and electrocardiogram do not suggest an acute infarction. Ischemia is possible but cannot be easily prevented in the future. (3) Chest pain: His chest pain clearly seems musculoskeletal, I do not believe it is ischemic. That will probably continue for some time. (4) Hypertension: His blood pressure is good today, it was elevated yesterday. Admission and Anticipated Discharge Date Admission Date: June 20, 2020 Subjective He is feeling well, no complaints. Physical Exam Physical Exam: Constitutional: Alert, cooperative and in no distress. He is extremely tender to palpation on his chest, including pressing with the stethoscope and with movement. HEENT: Unremarkable Neck: No jugular venous distention, carotid pulses are normal and equal bilaterally without bruits. Pulmonary: Clear to auscultation bilaterally. Cardiac: Regular rhythm with no murmur, gallop or rub. Abdomen: Soft, nontender with normal bowel sounds. Extremities: No edema. Distal pulses intact. Neurologic: No focal findings. Gait not tested. Skin: No rash, ecchymoses or petechiae. Results & Data ([facility]) Vital Signs (Past 12 Hours) Vital Signs Temp Pulse Resp BP Pulse Ox 06/23/20 07:09 36.5 C 66 19 126/88 96 06/23/20 04:09 36.7 C 65 18 134/83 94 06/22/20 23:12 36.7 C 66 18 150/89 H 95 Laboratory Results Intake and Output 06/22/20 06/23/20 06/23/20 22:59 06:59 14:59 Intake Total 250 / 850 0 / 850 Output Total 1300 / 3850 1450 / 3850 Balance -1050 / -3000 -1450 / -3000 Intake: Oral 250 / 850 0 / 850 Output: Urine 1300 / 3850 1450 / 3850 # Bowel Movements 0 / 0 Other: Weight 135.4 kg Diagnostic Findings Telemetry: Sinus rhythm, no significant arrhythmia PG Care Time/CCT Total # of Minutes Spent Total Time Spent with Patient: Total time spent is greater than 50% in coordination of care (as documented) at patient's floor/unit and/or counseling patient: Coding Level of Care Code 76581 Subseq Hosp Care Lvl 2 Diagnoses Cardiac arrest I46.9 Coronary artery disease I25.10 Chest pain R07.9 Hypertension I10
[2020-06-24] MEDS: ATORVASTATIN 40 MG TAB PO SCH (08:20)
[2020-06-24] MEDS: LOSARTAN POTASSIUM 50 MG TAB PO SCH (08:20)
[2020-06-24] MEDS: METOPROLOL TARTRATE 25 MG TAB PO SCH ×3 (08:21→20:59)
[2020-06-24] MEDS: TICAGRELOR 90 MG TAB PO SCH ×2 (08:24→21:01)
--- NOTE | 2020-06-24 09:03 | Hospitalist Progress Note ---
Date of Service June 24, 2020 Assessment & Plan (1) Cardiac arrest: With cardiac arrest - CPR and 1 shock administered by AED With chest pain ongoing after resuscitation more so likely secondary to musculoskeletal pain from CPR, however cardiac arrest thought to be due to the 99% stenosis found on urgent cardiac catheterization in the ramus prior to the patent proximal stent. Cardiac arrest alternatively could be from ventricular arrhythmia secondary to myocardial infarction scar. mental status clear CT angiogram of the chest negative for PE or dissection. CT of the head negative for acute disease. Now status post urgent PCI with stents to the ostial ramus and proximal LAD Echocardiogram post catheterization with preserved LV function Vital signs are stable at the time of admission after cardiac catheterization remain on PCU today -Loaded with Brilinta in the Facility Specialist will continue dual antiplatelet therapy with aspirin and Brilinta, Plavix has been stopped -Cardiology started him on metoprolol tartrate 25 mg p.o. 3 times daily for now (is on carvedilol as an outpatient), atorvastatin 80 mg once daily (home med rec listed as being on pravastatin 40 mg daily as an outpatient, although patient reports he was switched to Lipitor last year), and starting losartan 25 mg once daily Trop peak at 1.86 and now trending down Lipids WNL with LDL 55, HDL 41 A1c 6.8 Follow CBC, CMP, magnesium, phosphorus Appreciate cardiology and unmanned aircraft systems roboticist management -COVID-19 neg Planning ICD today with Dr. Gregg could likely be discharged to [facility] on Tuesday morning (2) Coronary artery disease: As noted above, known to be severe, not a candidate for CABG at this time given multiple stents in the LAD-not good options for sewing a graft in place as per cardiology -Continue management with medications as above Holding home isosorbide, BP is stable continue aspirin and Brilinta (3) Altered mental status: Secondary to post arrest, possibly anoxic brain injury-now much improved CT head negative for acute changes (4) Hypertension: Blood pressures are controlled, 123 systolic this morning -Continue metoprolol, added losartan as above Holding home isosorbide (5) Dyslipidemia: Switch pravastatin to atorvastatin although patient reports he was switched to atorvastatin last year-home med rec likely not updated Lipids as above (6) Chronic sinusitis: Noted previously and on CT of the head No acute issues COVID-19 is negative (7) DVT prophylaxis: SCDs, Brilinta, aspirin Eventually back to senior living, likely Tuesday after ICD Tuesday Admission and Anticipated Discharge Date Admission Date: June 20, 2020 Subjective patient feels well, no major issues, just pain in left chest on palpation and with deep breath pain due to compressions plan for ICD later today, he has been NPO no labs today, vitals stable Review of Systems Review of Systems: All systems reviewed & are unremarkable except as noted in Subjective Physical Exam Constitutional: WD/WN, vitals as above Eyes: PERRL, conjunctivae normal, anicteric sclerae ENMT: external ear and nose normal, oropharynx normal Neck: trachea midline, no thyromegaly Respiratory: normal respiratory effort, lungs clear to auscultation Cardiovascular: RRR, no murmur, no edema Gastrointestinal (Abdomen): normal bowel sounds, soft, nontender, no hepatosplenomegaly Musculoskeletal: no cyanosis or clubbing, extremities motor strength 5/5 Skin: no rashes, warm and dry Neurologic: patellar DTR's 2+ bilat, sensation intact and PERRL, EOMI, accommodation nl, no face palsy, no dysarthria Psychiatric: A+Ox3, euthymic affect Lymphatic: no cervical or axillary lymphadenopathy Results & Data Results & Data ([facility]) Vital Signs (Past 12 Hours) Vital Signs Temp Pulse Resp BP Pulse Ox 06/24/20 08:00 69 06/24/20 07:04 36.7 C 73 19 123/81 94 06/24/20 04:34 36.8 C 72 18 125/77 93 06/24/20 00:00 68 06/23/20 23:33 36.7 C 69 18 131/78 93 Medications Administered Current Inpatient Medications Acetaminophen (Acetaminophen 325 Mg Tab) 650 mg PO Q4H PRN PRN Reason: MILD Pain (Scale 1,2,3) Stop: 07/20/20 13:38 Last Admin: 06/22/20 19:25 Dose: 650 mg Documented by: Aspirin (Aspirin 81 Mg Ectab) 81 mg PO [facility] Stop: 07/21/20 08:59 Last Admin: 06/23/20 07:56 Dose: 81 mg Documented by: Atorvastatin Calcium ([facility] 40 Mg Tab) [facility] Stop: 07/21/20 08:59 Last Admin: 06/24/20 08:20 Dose: 80 mg Documented by: Lactated Ringer's (Lr) 1,000 mls @ 15 mls/hr IV .Q24H [facility] Stop: 06/27/20 02:39 Losartan Potassium (Losartan Potassium 50 Mg Tab) 50 mg PO QAM [facility] Stop: 07/23/20 08:59 Last Admin: 06/24/20 08:20 Dose: 50 mg Documented by: Magnesium Hydroxide (Magnesium Hydroxide Susp 30 Ml Udc) 30 ml PO Q6H PRN PRN Reason: constipation Stop: 07/21/20 14:53 Metoprolol Tartrate (Metoprolol Tartrate 25 Mg Tab) 25 mg PO TID [facility] Stop: 07/20/20 13:59 Last Admin: 06/24/20 08:21 Dose: 25 mg Documented by: Nitroglycerin (Nitroglycerin Sl 0.4 Mg/Tab Tab) 0.4 mg SL PRN PRN PRN Reason: Chest Pain Stop: 07/20/20 13:43 Ondansetron HCl (Ondansetron Inj 2 Mg/Ml 2 Ml Vial) 4 mg IV Q6H PRN PRN Reason: Nausea And Vomiting Stop: 07/20/20 13:38 Ticagrelor (Ticagrelor 90 Mg Tab) 90 mg PO BID [facility] Stop: 07/20/20 23:49 Last Admin: 06/24/20 08:24 Dose: 90 mg Documented by: PG Care Time/CCT Total # of Minutes Spent Total Time Spent with Patient: Total time spent is greater than 50% in coordination of care (as documented) at patient's floor/unit and/or counseling patient: Coding Level of Care Code 26072 Subseq Hosp Care Lvl 2 Diagnoses Cardiac arrest I46.9 Coronary artery disease I25.10 Altered mental status R41.82 Hypertension I10 Dyslipidemia E78.5 Chronic sinusitis J32.9 DVT prophylaxis Z29.9
--- NOTE | 2020-06-24 09:35 | Cardiology Progress Note ---
Date of Service June 24, 2020 Assessment & Plan (1) Cardiac arrest: His cardiac arrest appears to be a primary arrhythmia, based on his enzyme pattern and his initial electrocardiogram as well as his coronary angiography it does not appear that he had an acute event leading to his arrest. It is less common with normal left ventricular function then with left ventricular dysfunction, however he does have a prior myocardial infarction and ventricular arrhythmias certainly can occur. I have recommended an implantable defibrillator. He is scheduled for this afternoon. The patient is agreeable. I discussed the indications, procedure, risks and alternatives of ICD implantation with him and he understands and agrees to proceed. Consent obtained. I also discussed conscious sedation and he agrees, consent for that obtained. (2) Coronary artery disease: He has longstanding known coronary artery disease, he did have progression but is not clear that disease progression had a direct relationship to his presentation. His cardiac enzymes and electrocardiogram do not suggest an acute infarction. Ischemia is possible but cannot be easily prevented in the future. (3) Chest pain: His chest pain clearly seems musculoskeletal, I do not believe it is ischemic. That will probably continue for some time but is improving. (4) Hypertension: His blood pressure is good today. Admission and Anticipated Discharge Date Admission Date: June 20, 2020 Subjective Patient feels well today, no complaints, his musculoskeletal chest discomfort is improved. Physical Exam Physical Exam: Constitutional: Alert, cooperative and in no distress. He is extremely tender to palpation on his chest, including pressing with the stethoscope and with movement. HEENT: Unremarkable Neck: No jugular venous distention, carotid pulses are normal and equal bilaterally without bruits. Pulmonary: Clear to auscultation bilaterally. Cardiac: Regular rhythm with no murmur, gallop or rub. Abdomen: Soft, nontender with normal bowel sounds. Extremities: No edema. Distal pulses intact. Neurologic: No focal findings. Gait not tested. Skin: No rash, ecchymoses or petechiae. Results & Data ([facility]) Vital Signs (Past 12 Hours) Vital Signs Temp Pulse Resp BP Pulse Ox 06/24/20 08:00 69 06/24/20 07:04 36.7 C 73 19 123/81 94 06/24/20 04:34 36.8 C 72 18 125/77 93 06/24/20 00:00 68 06/23/20 23:33 36.7 C 69 18 131/78 93 Laboratory Results Intake and Output 06/23/20 06/24/20 06/24/20 22:59 06:59 14:59 Intake Total 600 / 1040 0 / 1040 Output Total 950 / 2650 1200 / 2650 Balance -350 / -1610 -1200 / -1610 Intake: Oral 600 / 1040 0 / 1040 Output: Urine 950 / 2650 1200 / 2650 Other: Other Intake Source NPO Weight 133.1 kg Diagnostic Findings Telemetry: Sinus rhythm, no significant arrhythmia PG Care Time/CCT Total # of Minutes Spent Total Time Spent with Patient: Total time spent is greater than 50% in coordination of care (as documented) at patient's floor/unit and/or counseling patient: Coding Level of Care Code 50087 Subseq Hosp Care Lvl 2 Diagnoses Cardiac arrest I46.9 Coronary artery disease I25.10 Chest pain R07.9 Hypertension I10
[2020-06-24] MEDS: LACTATED RINGER'S 1,000 ML IV SCH (10:26)
[2020-06-24] MEDS ORDERED: BACITRACIN OINT 0.9 GM PKT ONE (13:41)
[2020-06-24] MEDS ORDERED: BACITRACIN INJ 50,000 UNIT VIAL ONE (13:41)
[2020-06-24] MEDS ORDERED: LIDOCAINE HCL 1% 20 ML VIAL ONE (13:41)
[2020-06-24] MEDS ORDERED: fentaNYL citrate 100 MCG/2 ML VIAL ONE (14:48)
[2020-06-24] MEDS ORDERED: CEFAZOLIN 250 MG/ML 1 GM VIAL ONE (14:48)
[2020-06-24] MEDS ORDERED: MIDAZOLAM HCL 5 MG/ML 1 ML VIAL ONE (14:48)
--- NOTE | 2020-06-24 14:50 | Pre Anesthesia Assessment ---
Date of Service June 24, 2020 Pre Sedation Assessment Vital Signs Temp Pulse Pulse Resp BP BP Pulse Ox 06/24/20 14:32 78 17 137/82 95 06/24/20 10:45 36.6 C 66 19 120/71 95 06/24/20 08:00 69 06/24/20 07:04 36.7 C 73 19 123/81 94 06/24/20 04:34 36.8 C 72 18 125/77 93 06/24/20 00:00 68 06/23/20 23:33 36.7 C 69 18 131/78 93 06/23/20 20:48 78 06/23/20 19:08 36.7 C 70 21 150/96 H 96 06/23/20 14:59 36.7 C 70 21 139/100 96 Cardiovascular RRR, no murmur, no edema Respiratory normal respiratory effort, lungs clear to auscultation Pre-Sedation Airway Assessment Smoking Status: Former smoker Hx Sleep Apnea: No Hx Difficult Intubation: No Short, Thick Neck: No Thyromental Distance: < 3.5 Finger Breadths Oral Cavity: + WNL Mallampati Class: III ASA: ASA3 NPO Status Date of Last Intake of Fluids: 06/23/20 Time of Last Intake of Fluids: 20:00 Date of Last Intake of Solid Food: 06/23/20 Time of Last Intake of Solid Foods: 20:00 Procedure Planning Contraindications for Sedation: none Current Medications Reviewed: Yes Notes The planned sedation has been discussed with the patient. Informed Consent was obtained. I have identified the patient, determined the appropriateness of sedation and have assessed the patient immediately prior to the procedure. All medicine(s) and interventions are by my order.
--- NOTE | 2020-06-24 15:53 | Electrophysiology Report ---
Date of Service June 24, 2020 Electrophysiology Procedure Electrophysiology Procedure Report Preoperative diagnosis: Resuscitated sudden cardiac Postoperative diagnosis: Same Procedure: Left subclavian venogram Single-chamber ICD implantation Surgeon: Karri Gregg MD Estimated blood loss: 20 cc Complications: None Disposition: Cardiology recovery Procedure details: After obtaining informed consent for the procedure, the patient was brought to the laboratory and prepped and draped in the standard sterile manner. Dye was injected the left arm IV site to opacify the left subclavian vein. The subclavian vein was identified and found to be free of obstruction. The left prepectoral region was anesthetized with 1% lidocaine local anesthetic and left axillary venipuncture was performed by percutaneous technique and a guidewire placed through the left subclavian vein into the superior vena cava. The area was further infiltrated with 1% lidocaine local anesthetic and a 7 cm incision was made parallel to the left clavicle and 2 cm below it and carried down to the anterior pectoralis fascia. An ICD pocket was formed by blunt dissection anterior to the pectoralis fascia and a bacitracin- soaked sponge (50,000 units in 50 cc normal saline solution) was placed in the pocket. A 10.5 [employer] lead introducer was placed over the guidewire into the left subclavian vein, the dilator and guidewire were removed and a bipolar dual coil active fixation steroid tipped ventricular ICD lead was advanced through the introducer into the superior vena cava. A guidewire was placed through the introducer and the introducer was stripped from the lead and guidewire. Using a curved stylette the ventricular lead was advanced through the right ventricular outflow tract into the pulmonary artery and then using a straight stylette was positioned in the right ventricular apex. The screw was extended fixing the lead in position. Pacing and sensing thresholds were evaluated in bipolar configuration and are recorded on the implant data sheet. Once the lead was in position it was attached to the anterior pectoralis fascia using 2 sutures of 2-0 silk around the lead collar. The bacitracin-soaked sponge was removed from the pocket, hemostasis was obtained, the ICD was attached to the lead and placed in the pocket with the lead coiled beneath it. The incision was closed with a running double subcutaneous closure of 3-0 Vicryl absorbable suture, followed by running subcuticular skin closure of 4-0 Vicryl absorbable suture. Bacitracin ointment was placed on the incision and a dressing applied. [facility] Electrophysiology codes Indication for Procedure (1) Cardiac arrest: ICD Procedure 1: ICD: 03325 Insert single or dual ICD system Miscellaneous Procedures Procedure 1: EP Miscellaneous: 37636 Contrast injection for venography Procedure 2: EP Miscellaneous: 49813-91 Vengraphy, extremity PG Moderate Sedation Codes Moderate Sedation Codes Procedure 1: Sedation/Anesthesia: 22101 Mod Sedation by the same physician;Init15 Min Child Age 5 & Up Procedure 2: Sedation/Anesthesia: 27495 Mod Sedation by the same physician; Ea [id number] Minutes
[2020-06-24] MEDS ORDERED: KETOROLAC TROMETHAMINE 10 MG TABLET PO PRN (15:56)
--- NOTE | 2020-06-24 16:10 | Post Anesthesia Assessment ---
Date of Service June 24, 2020 Post Sedation Assessment Vital Signs Temp Pulse Pulse Resp BP BP Pulse Ox 06/24/20 16:07 74 18 137/84 97 06/24/20 15:55 75 18 140/90 95 06/24/20 14:32 78 17 137/82 95 06/24/20 10:45 36.6 C 66 19 120/71 95 06/24/20 08:00 69 06/24/20 07:04 36.7 C 73 19 123/81 94 06/24/20 04:34 36.8 C 72 18 125/77 93 06/24/20 00:00 68 06/23/20 23:33 36.7 C 69 18 131/78 93 06/23/20 20:48 78 06/23/20 19:08 36.7 C 70 21 150/96 H 96 Recovery Score Activity: Moves 4 extremities Respiration: Deep Breath/Cough Circulation: +/-20% PreAnes Value Consciousness: Fully Awake Oxygen Saturation: > 92% On Room Air Post Anesthesia Score: 10 Discharge Sedation Level of Care: Fast Track Phase II Post Sedation Plan On clinical assessment, the patient appears to have tolerated the sedation without complications. Patient is recovering as anticipated. Patient will continue to be monitored by nursing and may be discharged when sedation discharge criteria are met per below protocol. Upon Completions of procedure up to 15 minutes continue every 5 minute vital signs and the P.A.R. score; then discharge to a Phase I or Fast Track to Phase II per the following guidelines: * Discharge Patient to appropriate Phase II area if PAR is 8 or greater or return to pre- procedure baseline. The post - procedure orders will be as directed. * If PAR score is less than 8 or not return to pre-procedure baseline then patient will follow Phase I monitoring till PAR is reached for Phase II. The Phase I may be done in procedure room or may call to secure a Phase I area. * If naloxone or flumazenil are used for reversal, hold in Phase I for continued monitoring from when last reversal dose was given for a minimum of 60 minutes or longer pending the nurse and/or physician discretion of patient condition before discharge to Phase II. Please call the Sedation Physician to re-evaluate and complete post-note for discharge to Phase II area. Do NOT discharge from procedure sedation or Phase 1 until post- sedation evaluation note is complete by procedure /sedation MD Sedation Discharge Instructions to be given to the patient at discharge to home.
[2020-06-24] MEDS: ASPIRIN 81 MG ECTAB PO SCH (17:51)
[2020-06-25 06:49] LABS: Hematocrit (blood only) 44.3 % (42-52); Hemoglobin 14.9 g/dL (14.0-18.0); Mean Corpuscular Hemoglobin 29.5 pg (25-34); Mean Corpuscular Hgb Conc 33.6 g/dL (32-36); Mean Corpuscular Volume 87.7 fL (80-100); Mean Platelet Volume 10.6 fL (7.4-10.4); Platelet Count 204 K/uL (130-400); RDW Coefficient of Variation 14.3 % (11.5-14.5); RDW Standard Deviation 45.6 fL (36.4-46.3); Red Blood Count 5.05 M/uL (4.7-6.1); White Blood Count 11.57 K/uL (4.8-10.8)
[2020-06-25 07:25] LABS: BUN Creatinine Ratio 23.3 (10-20); Calcium 8.9 mg/dl (8.5-10.1); Creatinine Clr Calc Pharmacy 151.6 ml/min; Est GFR (Non-African American) 105.2; Potassium 3.9 mmol/L (3.5-5.1)
--- NOTE | 2020-06-25 08:13 | XRay Report ---
TWO VIEW CHEST CLINICAL HISTORY: Status post pacemaker implantation. FINDINGS: PA and lateral chest radiographs are compared to chest x-ray and chest CT dated 06/20/2020. A single lead cardiac AICD has been placed. This partially obscures the left lower chest. The lead pr ojects over the right ventricle. A coronary artery stent is noted. The heart is enlarged. The pulmona ry vasculature is noncongested. There is bibasilar scarring/atelectasis. No airspace consolidation or pleural effusion is identified. There is no pneumothorax. The skeletal structures are osteopenic. Th e bony thorax appears intact. IMPRESSION: 1. A single lead cardiac AICD has been placed as above. No pneumothorax is seen post procedure. 2. Cardiomegaly. There is no radiographic evidence of congestive failure. 3. No airspace consolidation or pleural effusion is identified. ACT 112: Negative or not required by law. Electronically signed by: Nabil Wade M.D. 06/25/2020 8:11 AM
[2020-06-25] MEDS: ATORVASTATIN 40 MG TAB PO SCH (08:31)
[2020-06-25] MEDS: ASPIRIN 81 MG ECTAB PO SCH (08:31)
[2020-06-25] MEDS: LOSARTAN POTASSIUM 50 MG TAB PO SCH (08:31)
[2020-06-25] MEDS: METOPROLOL TARTRATE 25 MG TAB PO SCH ×2 (08:33→15:19)
[2020-06-25] MEDS: TICAGRELOR 90 MG TAB PO SCH (08:34)
[2020-06-25] MEDS: LACTATED RINGER'S 1,000 ML IV SCH (08:52)
--- NOTE | 2020-06-25 09:26 | Cardiology Progress Note ---
Date of Service June 25, 2020 Assessment & Plan (1) Status post implantation of automatic cardioverter/defibrillator (AICD): He is doing well post ICD implantation. His chest x-ray looks good, the site looks good and the device is working well. He is stable for discharge from my standpoint. We will arrange follow-up. Admission and Anticipated Discharge Date Admission Date: June 20, 2020 Subjective He is doing well postop day #1, he has no complaints of chest discomfort or significant incisional discomfort. Physical Exam Physical Exam: The surgical site is clean and dry, minimal blood on the dressing which I changed. Lungs are clear Cardiac rhythm is regular without a rub Results & Data ([facility]) Vital Signs (Past 12 Hours) Vital Signs Temp Pulse Pulse Resp BP Pulse Ox 06/25/20 08:00 36.8 C 79 68 18 140/91 98 06/25/20 03:30 36.8 C 70 18 139/81 95 06/25/20 00:00 73 06/24/20 23:07 37.0 C 71 20 156/94 H 95 Diagnostic Findings Chest x-ray: Good lead position, no pneumothorax Telemetry: Normal (intubated) ICD function ICD evaluation: Excellent characteristics PG Care Time/CCT Total # of Minutes Spent Total Time Spent with Patient: Total time spent is greater than 50% in coordination of care (as documented) at patient's floor/unit and/or counseling patient: Coding Level of Care Code 95768 Post Operative Follow-Up Diagnoses Status post implantation of automatic cardioverter/defibrillator (AICD) Z95.810 CPT Codes Implantable Defib Single Lead Programming - 21308 ([id number])
--- NOTE | 2020-06-25 14:50 | Discharge Summary ---
Date of Service June 25, 2020 Admission HPI Per Admitting Provider This patient is a 45-year-old male with an extensive cardiac history of CAD with MIs beginning at age 34 and a history of stents to the LAD and circumflex with a known occluded RCA and apical LAD. He presented after being found unresponsive and apneic and pulseless at the correction break room. He was administered CPR and the AED advised 1 shock after which ROSC was achieved. When he came to the ER, he was awake and alert but agitated and screaming saying that he had severe chest pain. His initial troponin was 0.09. His initial ECG showed normal sinus rhythm with mild ST depression in the lateral leads with T wave inversions, but no STEMI. Because of his severe ongoing chest pain, he was sent for a CT angiogram of the chest as well as a CT of the head and cervical spine due to being found down. The CT angiogram of the chest was negative for dissection or PE or pneumonia, but did show a possible sternal fracture and some atelectasis as well as a coronary artery stent. The CT of the head showed some paranasal sinus disease and CT of the cervical spine was negative for fracture. He was taken urgently to the cardiac Clinical Care Leader where he was found to have 99% stenosis before his stent in the ramus and a 70 to 80% restenosis of the proximal LAD stent. He was again shown to have a chronic 100% distal LAD total occlusion with apical vessels filling partially via the left to left collaterals, as well as a 100% chronic total occlusion of the OM 2 and 100% proximal RCA chronic total occlusion with PLB's fill via left to left collaterals. He had successful PCI of the ostial ramus with a single drug- eluting stent in the ostial to proximal LAD with single drug-eluting stent. He was loaded with Brilinta and sent to the ICU. He continued to have chest pain after the cardiac catheterization which is musculoskeletal in nature likely due to sternal fracture from the CPR administered. He was noted by the transcribing machine operator to have some post arrest confusion and agitation prior to his cardiac catheterization. I discussed the case with the buildings and grounds coordinator and the erisa attorney. Principal Diagnosis Cardiac arrest due to ventricular arrhythmia Discharge Exam Constitutional WD/WN, vitals as above Eyes PERRL, conjunctivae normal, anicteric sclerae ENMT external ear and nose normal, oropharynx normal Neck trachea midline, no thyromegaly Respiratory normal respiratory effort, lungs clear to auscultation Cardiovascular RRR, no murmur, no edema Gastrointestinal (Abdomen) normal bowel sounds, soft, nontender, no hepatosplenomegaly Musculoskeletal no cyanosis or clubbing, extremities motor strength 5/5 Skin no rashes, warm and dry Neurologic patellar DTR's 2+ bilat, sensation intact and PERRL, EOMI, accommodation nl, no face palsy, no dysarthria Psychiatric A+Ox3, euthymic affect Lymphatic no cervical or axillary lymphadenopathy Discharge Data Allergies Allergy/AdvReac Type Severity Reaction Status Date / Time trazodone Allergy Severe LOW BP Verified 04/27/19 13:08 fish derived Allergy Swelling Verified 06/24/20 14:34 of Lip/Tongue/Throat Consultations 06/20/20 12:16 ED Decision to Admit Stat 06/20/20 13:51 Consult Case Management - Discharge Planning Routine Consult Active Directory Specialist Routine 06/20/20 16:17 Consult Cardiology Routine Procedures Performed Operation Date: 06/20/20 12:05 Actual Procedures p Cath, Left with Cors and Vent - Tony Cornejo MD s Cineradiography w/Routine Exam - Tony Cornejo MD p Aspiration/PCI w/ALEX for Stemi - Tony Cornejo MD s IVUS Coronary Single Vessel - Tony Cornejo MD Operation Date: 06/24/20 15:00 Actual Procedures p ICD Insertion Single or Dual - Karri Gregg MD Ordered Studies 06/20/20 11:15 CL Cath Imgs for PACS use only Stat 06/20/20 11:19 CT head/brain wo con Stat 06/20/20 11:26 CT cervical spine wo con Stat 06/20/20 11:29 CT angio chest dissec wo/w con Stat 06/20/20 16:32 CL IVUS Coronary Single Vessel Routine 06/24/20 06:36 CL Cath Imgs for PACS use only Stat Diabetes Follow up Diabetes Follow-up Needed for Newly Diagnosed Diabetes Hospital Course (1) Cardiac arrest: With cardiac arrest - CPR and 1 shock administered by AED With chest pain ongoing after resuscitation more so likely secondary to muscu loskeletal pain from CPR, however cardiac arrest thought to be due to the 99% stenosis found on urgent cardiac catheterization in the ramus prior to the patent proximal stent. Cardiac arrest alternatively could be from ventricular arrhythmia secondary to myocardial infarction scar. mental status clear CT angiogram of the chest negative for PE or dissection. CT of the head negative for acute disease. Now status post urgent PCI with stents to the ostial ramus and proximal LAD Echocardiogram post catheterization with preserved LV function Vital signs are stable at the time of admission after cardiac catheterization remain on PCU today -Loaded with Brilinta in the Clinical Care Leader will continue dual antiplatelet therapy with aspirin and Brilinta, Plavix has been stopped -Cardiology started him on metoprolol tartrate 25 mg p.o. 3 times daily for now (is on carvedilol as an outpatient), atorvastatin 80 mg once daily (home med rec listed as being on pravastatin 40 mg daily as an outpatient, although patient reports he was switched to Lipitor last year), and starting losartan 25 mg once daily Trop peak at 1.86 and now trending down Lipids WNL with LDL 55, HDL 41 A1c 6.8 Follow CBC, CMP, magnesium, phosphorus Appreciate cardiology and erisa attorney management -COVID-19 neg ICD placed on 06/24, no complications, no pneumothorax on CXR, incision is clean and intact do not raise left arm above head or reach backwards with left arm for [address] Gregg will arrange follow up new medications: Brilinta 90mg BID, Lipitor 80mg daily, Losartan 50mg daily, continue on Coreg (2) Coronary artery disease: As noted above, known to be severe, not a candidate for CABG at this time given multiple stents in the LAD-not good options for sewing a graft in place as per cardiology -Continue management with medications as above Holding home isosorbide, BP is stable continue aspirin and Brilinta, Coreg, Losartan, Lipitor (3) Altered mental status: Secondary to post arrest, possibly anoxic brain injury-now much improved CT head negative for acute changes (4) Hypertension: Blood pressures are controlled -Continue Coreg and Losartan discontinue Imdur (5) Dyslipidemia: Switch pravastatin to atorvastatin although patient reports he was switched to atorvastatin last year-home med rec likely not updated Lipids as above (6) Chronic sinusitis: Noted previously and on CT of the head No acute issues COVID-19 is negative (7) DVT prophylaxis: SCDs, Brilinta, aspirin Eventually back to correction, likely Wednesday after ICD Tuesday Total Time Total Time Spent Total Time Spent (In Minutes): 33 minutes Total Time Includes: Examination of the Patient, Discharge Planning, Medication Reconciliation and Communication With Other Providers (physician at [facility]) Discharge Plan Discharge Items [facility] Disposition: [facility] Reason For Visit: CARDIAC ARREST Discharge Diagnosis: Cardiac arrest, likely due to ventricular arrhythmia Coronary artery disease, s/p drug eluting stent s/p ICD placement Condition on Discharge: Good Activity: Per Instructions section Weightbearing: Full weightbearing Non-emergency contact: Primary Care Provider and Asparagus Buncher Call non-emergency contact if: you have any medication questions and your symptoms worsen Follow-up/Referrals: Milton DOMINGUEZ [Primary Care Provider] - (this week) Diet: Heart Healthy Addtl Attending Provider Instructions: Medications: - BRILINTA: 90mg twice a day, this replaces Plavix, recommended by cardiology, needs to take for one year - ASPIRIN: dose reduced to 81mg daily - LOSARTAN: new BP medication, take 50mg daily - LIPITOR: 80mg daily, replaces pravastatin, he needs high intensity statin due to severity of coronary disease Patient presented with cardiac arrest, suspected to be due to ventricular arrhythmia after resuscitation he had left heart cath, drug eluting stent placed will now be on Brilinta, aspirin statin was changed to Lipitor 80mg daily Losartan added for cardiac protection continue on Carvedilol ICD placed on 06/[address] Gregg to protect from sudden cardiac in the future site looks good, no pneumothorax on chest x-ray cardiology will arrange for follow up in 1 week please note, he should not raise left arm above head, reach behind his back with left arm for 6 weeks to allow ICD to heal Pending Studies at Discharge: No Stand-Alone Forms: My [facility] Skilled Items Patient informed of condition?: Yes Discharge Level of Care: Other Communicable Disease: No Discharge Prognosis: Stable Lines: None Urinary Catheter: No Medications and DC Order Prescriptions: New losartan 50 mg Tablet 50 mg PO QAM 30 Days Qty: 30 RF: 3 atorvastatin 40 mg Tablet 80 mg PO QAM 30 Days Qty: 60 RF: 3 aspirin 81 mg Tablet,Delayed Release (Dr/Ec) 81 mg PO QAM 30 Days Qty: 30 RF: 3 Brilinta 90 mg Tablet 90 mg PO BID 30 Days Qty: 60 RF: 3 Continued sertraline 100 mg tablet 200 mg PO DAILY Qty: 30 RF: 2 nitroglycerin 0.4 mg tablet, sublingual 0.4 mg SL Q5M PRN (Reason: chest pain) Qty: 20 RF: 0 carvedilol 12.5 mg tablet 12.5 mg PO BID Qty: 60 RF: 2 Discontinued aspirin 325 mg tablet 325 mg PO DAILY Qty: 30 RF: 2 clopidogrel 75 mg tablet 75 mg PO DAILY Qty: 30 RF: 2 isosorbide mononitrate 30 mg tablet extended release 24 hr 30 mg PO DAILY Qty: 30 RF: 2 pravastatin 40 mg tablet 40 mg PO DAILY Qty: 30 RF: 2 Discharge Orders: Discharge Order (Routine); Ordered 06/25/20 Ordered By: Osvaldo Mccurdy/Other Patient Handouts: Managing Type 2 Diabetes, Diabetes: Meal Planning, A1C Admission Data Admit Date/Time: 06/20/20 13:51 Attending Provider: Osvaldo Bates Admit Provider: Tony Cornejo Primary Care Provider: Milton DOMINGUEZ Other Providers: Cielo Boss ; Byron Alvarez ; Tony Cornejo Other Interventions: Discharge Summary Assessment (RN) Last Done: 06/25/20 10:38 Coding Level of Care Code D/C Day Management >30 mins Diagnoses Cardiac arrest I46.9 Coronary artery disease I25.10 Altered mental status R41.82 Hypertension I10 Dyslipidemia E78.5 Chronic sinusitis J32.9 DVT prophylaxis Z29.9
[2020-06-25] MEDS ORDERED: Nursing to Pharmacy Communication SCH (15:15)
[2020-06-25] MEDS ORDERED: LOSARTAN POTASSIUM 50 MG TAB PO SCH (15:30)
[2020-06-25] MEDS ORDERED: ATORVASTATIN 40 MG TAB PO SCH (15:30)
[2020-06-25] MEDS ORDERED: TICAGRELOR 90 MG TAB PO SCH (15:30)
--- NOTE | 2020-06-25 16:45 | Electrocardiogram Report ---
Test Reason : Blood Pressure : / mmHG Vent. Rate : 081 BPM Atrial Rate : 081 BPM P-R Int : 166 ms QRS Dur : 092 ms QT Int : 388 ms P-R-T Axes : 063 -07 129 degrees QTc Int : 450 ms Normal sinus rhythm Anterior infarct Abnormal ECG When compared with ECG of 20-JUN-2020 14:50, Nonspecific T wave abnormality, improved in Anterolateral leads Confirmed by Andrea Garcia (2) on 06/25/2020 4:45:18 PM Referred By: REFERRED SELF Confirmed By:Andrea Garcia
== END 2020-06-25 16:23 | DRG 247 ==
LOC: ED 11:13 → CC 11:56 → SUATTDRO 13:51 → 1E 13:51 → 2E 06-22 11:04
PROC: EPB.ICD (2020-06-24 15:00)